=== PATIENT | female | born 2000 | race Caucasian/White ===

== ENCOUNTER 2025-03-18 23:02 | Emergency (ER) | payer SELFPAY ==
--- OUTSIDE RECORDS SUMMARY | 2025-03-18 23:06 | XMS REPORT | Continuity of Care Document ---
Author Name Unknown Address [address] [facility] [address] [place] [address] Organization [facility] [place] Address [address] [facility] [address] [place] [address] Care Team Providers Care Commercial Underwriter Name Role Phone UNKNOWN, REFFERING Primary Care Physician Hay Rodgers MD Attending Clinician [phone] HAY SHIRLEY Attending Clinician Unavailable Lab, [facility] Attending Clinician Unavailable Doctor Unassigned, [place] Attending Clinician U Mariana Baxter Attending Clinician Unavailable Francoise Hanson MD Attending Clinician [phone] FRANCOISE HANSON Attending Clinician Karan Vieira Attending Clinician Unavailable Ema Cuellar Attending Clinician [phone] EMA PERALTA Attending Clinician Unavailable Sanam Williamson Attending Clinician [phone] SANAM CASTAÑEDA Attending Clinician Unavailable [facility]ending Clinician Un available Viv ALEXANDER, Leta Attending Clinician [phone] Waleska Clay MD Attending Clinician [phone] WALESKA CLAY Attending Clinician Unavailable WALESKA CLAY Attending Clinician Unavailable Jake WOODALL, Ira Attending Clinician [phone], [facility] Room Attending Clinician Unavaildevika Ma MD, Sussy Brown Attending Clinician Maggy Aneesh Marshall MD Attending Clinician [phone] Fátima Arias CNM Attending Clinician [phone] KARRIE POE Attending Clinician Unavailable Physician, No Primary or Family Admitting Clinic rommel Unavailable Waleska Clay MD Admitting Clinician [phone] WALESKA CLAY Admitting Clinician Unavailable KARRIE POE Admitting Clinician Unavailable Payers Payer Name Policy Type Policy Number Effective Date Expirati on Date Source Problems Condition Name Condition Details Condition Category Status Onset Date Resolution Date Last Treatment Date Treating Clinician Comments Source Obesity affecting in third trimester Obesity affecting in third trimester Disease Active 2-03 00:00: 00 [facility] 39 weeks gestation of 39 weeks gestation of Disease Active 203 00:00: 00 [facility] Rubella non-immune status, antepartum Rubella non-immune status, antepartum Disease Active 04-09 00:00: 00 [facility] Maternal varicella, non-immune Maternal varicella, non-immune Disease Active 04-09 00:00: 00 [facility] Septate uterus Septate uterus Disease Active 04-07 00:00: 00 [facility] with inconclusi ve viability with inconclusi ve viability Disease Active 04-07 00:00: 00 Overview: Formattin g of this note might be different from the original. Gestation al sac only on 03/1219 with in left horn of septated uterus. F/u scheduled for 04/21/19 for viability . [facility] Septate uterus Septate uterus Disease Active 04-07 00:00: 00 [facility] Suicide attempt by drug ingestion Suicide attempt by drug ingestion Disease Active 03-22 00:00: 00 [facility] Suicide attempt by drug ingestion Suicide attempt by drug ingestion Disease Active 03-22 00:00: 00 [facility] Obesity (BMI 30-39.9) Obesity (BMI 30-39.9) Disease Active 03-20 00:00: 00 [facility] Class 3 severe obesity with body mass index (BMI) of 40.0 to 44.9 in adult Class 3 severe obesity with body mass index (BMI) of 40.0 to 44.9 in adult Disease Active 03-20 00:00: 00 [facility] Allergies, Adverse Reactions, Alerts Allergy Name Allergy Type Status Severity Reaction(s) Onset Date Inactive Date Treating Clinician Comments Source No Known Allergie s DA Active U 12-06 00:00: 00 [facility] No Known Allergie s DA Active U 12-06 00:00: 00 [facility] NO KNOWN ALLERGIE S Drug Class Active [facility] Social History Social Habit Start Date Stop Date Quantity Comments Source ASSERTION 2019-03-15 00:00:00 [facility] Gender identity [facility] Sexual orientation U [facility] Alcohol intake 2023-05-27 00:00:00 2023-05-27 00:00:00 Ex-drinker (finding) [facility] Tobacco use and exposure 2023-05-27 00:00:00 2023-05-27 00:00:00 Smokeless tobacco non-user [facility] History of Social function 2023-05-27 00:00:00 2023-05-27 00:00:00 [facility] Alcohol Comment 2019-04-07 00:00:00 2019-04-07 00:00:00 socially [facility] Sex Assigned At 2000 00:00:00 2000 00:00:00 [facility] Smoking Status Start Date Stop Date Source Never smoked tobacco [facility] Medications Ordered Medication Name Filled Medication Name Start Date Stop Date Current Medication? Ordering Clinician Indication Dosage Frequency Signature (SIG) Comments Components Source drospirenon e-ethinyl estradioL 3-0.02 mg per tablet 05-30 00:00: 00 Yes [id number] 1{tbl} Take 1 tablet by mouth in the morning. [facility] vit 33-iron-fol ic-dha (SELECT-OB + DHA) 29 mg iron-1 mg -250 mg combo pack 05-27 00:00: 00 Yes [id number] 1{packe t} Take 1 Packet by mouth in the morning. [facility] amoxicillin -clavulanat e (AUGMENTIN) 875-125 mg per tablet 05-22 00:00: 00 05-28 04:59 :00 No [id number] 1{tbl} Take 1 tablet by mouth 2 (two) times daily for 5 days. [facility] citalopram (CELEXA) 20 mg tablet 12-23 00:00: 00 05-27 00:00 :00 No [id number] 20mg Take 1 tablet by mouth daily. [facility] vit 33-iron-fol ic-dha (SELECT-OB + DHA) 29 mg iron-1 mg -250 mg combo pack 12-08 00:00: 00 Yes [id number] 1{packe t} Take 1 Packet by mouth daily. [facility] vit 33-iron-fol ic-dha (SELECT-OB + DHA) 29 mg iron-1 mg -250 mg combo pack 12-08 00:00: 00 05-27 00:00 :00 No [id number] 1{packe t} Take 1 Packet by mouth daily. [facility] foLIC acid (FOLATE) tablet 1 mg 12-02 15:00: 00 Yes 1mg 1 mg, Oral, DAILY, First dose on Ana 12/02/19 at 0900, Until Discontinu ed, Routine [facility] ascorbic acid (vitamin C) (VITAMIN C) tablet 500 mg 12-02 15:00: 00 Yes 500mg 500 mg, Oral, DAILY, First dose on Fri12/02/19 at 0900, Until Discontinu ed, Routine [facility] ferrous sulfate tablet 325 mg 12-02 14:00: 00 Yes 325mg 325 mg, Oral, TID MEALS, First dose on Fri12/02/19 at 0800, Until Discontinu ed, Routine [facility] varicella virus vaccine live (VARIVAX (PF)) injection 0.5 mL 12-02 09:12: 48 Yes .5mL 0.5 mL, Subcutaneo us, ONCE-PRIOR TO DISCHARGE, 1 dose, Starting Fri12/02/19 at 0312, Until Discontinu ed, Routine, Give vaccine prior to discharge [facility] lactated ringers IV infusion 500 mL 12-02 00:57: 00 12-02 01:16 :00 No 500mL at 999 mL/hr, 500 mL, Intravenou s, ONCE, 1 dose, Fri12/01/19 at 1900, Routine [facility] vitamin w/FA tablet 12-02 00:00: 00 Yes [id number] 1{tbl} Take 1 tablet by mouth daily. [facility] ascorbic acid, vitamin C, 500 mg tablet 12-02 00:00: 00 05-27 00:00 :00 No [id number] 500mg Take 1 tablet by mouth daily. [facility] ferrous sulfate 325 mg (65 mg iron) tablet 12-02 00:00: 00 05-27 00:00 :00 No [id number] 325mg Take 1 tablet by mouth 3 (three) times daily with meals. [facility] foLIC acid 1 mg tablet 12-02 00:00: 00 05-27 00:00 :00 No [id number] 1mg Take 1 tablet by mouth daily. [facility] docusate calcium 240 mg capsule 12-02 00:00: 00 05-27 00:00 :00 No [id number] 240mg Take 1 capsule by mouth once daily as needed for Constipati on. [facility] ibuprofen 600 mg tablet 12-02 00:00: 00 05-27 00:00 :00 No [id number] 600mg Take 1 tablet by mouth every 6 (six) hours as needed (Pain). Take with food or milk. [facility] HYDROcodone -acetaminop hen 5-325 mg tablet 12-02 00:00: 00 05-27 00:00 :00 No [id number] 1{tbl} Take 1 tablet by mouth every 6 (six) hours as needed for Pain (scale 7-10) (alternate with ibuprofen) . [facility] lactated ringers IV infusion 1,000 mL 12-01 23:00: 00 12-02 06:22 :00 No 1000mL at 125 mL/hr, 1,000 mL, IV Infusion, ONCE, 1 dose, Fri12/01/19 at 1700, Routine [facility] rho(D) immune globulin (RHOGAM) syringe 300 mcg 12-01 22:52: 41 Yes 300ug 300 mcg, Intramuscu lar, ONCE, For 1 dose, Conditiona l, Routine [facility] ondansetron (ZOFRAN (PF)) injection 4 mg 12-01 22:52: 36 Yes 4mg 4 mg, Slow IV Push, Q8HPRN, Starting Fri12/01/19 at 1652, Until Discontinu ed, Routine, Nausea and Vomiting (N/V) [facility] simethicone (GAS RELIEF (SIMETHICON E)) chewable tablet 160 mg 12-01 22:52: 36 Yes 160mg 160 mg, Oral, PC+HSPRN, Starting Fri12/01/19 at 1652, Until Discontinu ed, Routine, Gas [facility] magnesium hydroxide (MILK OF MAGNESIA) 400 mg/5 mL suspension 30 mL 12-01 22:52: 36 Yes 30mL 30 mL, Oral, QDAILYPRN, Starting Fri12/01/19 at 1652, Until Discontinu ed, Routine, Constipati on [facility] HYDROcodone -acetaminop hen (NORCO 5) 5-325 mg tablet 2 tablet 12-01 22:52: 35 Yes 2{tbl} 2 tablet, Oral, Q6HPRN, Starting Fri12/01/19 at 165, Until Discontinu ed, Routine, Pain (scale 7-10), If uncontroll ed by Ibuprofen [facility] HYDROcodone -acetaminop hen (NORCO 5) 5-325 mg tablet 1 tablet 12-01 22:52: 35 Yes 1{tbl} 1 tablet, Oral, Q6HPRN, Starting Fri12/01/19 at 1651, Until Discontinu ed, Routine, Pain (scale 4-6), If uncontroll ed by Ibuprofen [facility] ibuprofen (IBU) tablet 600 mg 12-01 22:52: 35 Yes 600mg 600 mg, Oral, Q6HPRN, Starting Fri12/01/19 at 1651, Until Discontinu ed, Routine, Pain (scale 1-3) [facility] human papillomav vac,9-christ(P F) (GARDASIL-9 ) syringe 0.5 mL 12-01 22:52: 35 Yes .5mL 0.5 mL, Intramuscu lar, ONCE-PRIOR TO DISCHARGE, 1 dose, Starting Fri12/01/19 at 1651, Until Discontinu ed, Routine, Give vaccine prior to discharge [facility] diphenhydrA MINE (BENADRYL) tablet 25 mg 12-01 22:52: 35 Yes 25mg 25 mg, Oral, Q6HPRN, Starting Fri12/01/19 at 1651, Until Discontinu ed, Routine, Sleep, Itching [facility] bisacodyL (DULCOLAX) suppository 10 mg 12-01 22:52: 35 Yes 10mg 10 mg, Rectal, QDAILYPRN, Starting Fri12/01/19 at 1651, Until Discontinu ed, Routine, Constipati on [facility] docusate calcium (SURFAK) capsule 240 mg 12-01 22:52: 35 Yes 240mg 240 mg, Oral, QDAILYPRN, Starting Fri12/01/19 at 165, Until Discontinu ed, Routine, Constipati on [facility] ketorolac (TORADOL) injection 30 mg 12-01 20:18: 07 Yes 30mg 30 mg, Slow IV Push, Q6HPRN, 4 doses, Starting Fri12/01/19 at 1418, Until Discontinu ed, Routine, Pain (scale 4-6), [facility] : LD PACU [facility] LR 1000 mL + oxytocin 20 units IV Solution 12-01 18:30: 00 12-01 22:52 :42 No at 125 mL/hr, IV Infusion, CONTINUOUS , Starting Fri12/01/19 at 1230, Until Fri12/01/19 at 1652, LATHA [facility] azithromyci n (ZITHROMAX) 500 mg in NaCl 0.9% (NS) 250 mL VIAL-MATE IV piggyback 12-01 17:52: 07 12-01 19:02 :00 No 500mg 500 mg, IV Piggyback, O.R. HOLDING ONCE, 1 dose, Starting Fri12/01/19 at 1152, Until Discontinu ed, 250 mL
Reas on for Anti-Infec tive: Surgical Prophylaxi s
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
Duration of therapy: within 24 hours of surgery [facility] sodium citrate-cit bucky acid (BICITRA) 500-334 mg/5 mL solution 30 mL 12-01 17:51: 52 12-01 18:02 :00 No 30mL 30 mL, Oral, PRE-PROCED URE ONCE, 1 dose, Starting Fri12/01/19 at 1151, Until Discontinu ed, Routine, Surgery [facility] LR 1000 mL + oxytocin 20 units IV Solution 12-01 02:07: 42 12-01 22:52 :42 No 2mU/min 2 zena-unit s/min (6 mL/hr), at 6 mL/hr, IV Infusion, TITRATE, Starting 11/30/19 at 2007, Until Fri12/01/19 at 1652, LATHA, Oxytocin Induction / Augmentati on of Labor. [facility] acetaminoph en (TYLENOL) tablet 650 mg 12-01 01:30: 00 12-01 01:32 :00 No 650mg 650 mg, Oral, ONCE, 1 dose, 11/30/19 at 1930, Routine [facility] lactated ringers IV infusion 500 mL 11-30 12:45: 00 11-30 12:08 :00 No 500mL at 999 mL/hr, 500 mL, IV Infusion, ONCE, 1 dose, 11/30/19 at 0645, Routine [facility] proMETHazin e (PHENERGAN) 25 mg in NaCl 0.9% (NS) 50 mL IV piggyback 11-30 08:36: 34 12-01 22:52 :42 No 25mg 25 mg, IV Piggyback, Q4HPRN, Starting 11/30/19 at 0236, Until 12/01/19 at 1652, Routine, Nausea and Vomiting (N/V) [facility] nalbuphine (NUBAIN) injection 10 mg 11-30 08:36: 00 11-30 08:55 :00 No 10mg 10 mg, Intravenou s, ONCE, 1 dose, 11/30/19 at 0245, Routine [facility] LR 1000 mL + oxytocin 20 units IV Solution 11-30 04:15: 00 12-01 02:08 :11 No 2mU/min 2 zena-unit s/min (6 mL/hr), at 6 mL/hr, IV Infusion, CONTINUOUS , Starting 11/29/19 at 2215, Until 11/30/19 at 2008, LATHA [facility] D5W-LR IV infusion 1,000 mL 11-30 03:15: 00 12-01 22:52 :42 No 1000mL at 125 mL/hr, IV Infusion, CONTINUOUS , Starting 11/29/19 at 2115, Until 12/01/19 at 1652, Routine [facility] sodium citrate-cit bucky acid (BICITRA) 500-334 mg/5 mL solution 30 mL 11-30 03:08: 58 11-30 12:09 :00 No 30mL 30 mL, Oral, PRE-PROCED URE ONCE, 1 dose, Starting Fri11/29/19 at 2108, Until Discontinu ed, Routine, Surgery/Pr ocedure [facility] Iron Fum & P-FA-Vit B & C No.9 (INTEGRA PLUS) 125 mg iron- 1 mg Cap 2018-10 2-18 00:00: 00 12-02 00:00 :00 No [id number] 1{capsu le} Take 1 capsule by mouth daily for 90 days. [facility] doxylamine- pyridoxine, vit B6, (DICLEGIS) 10-10 mg per tablet 7-10 00:00: 00 12-02 00:00 :00 No [id number] 2{tbl} Take 2 tablets by mouth at bedtime. 1 tab morning PRN, 1 tab late afternoon PRN, 2 tabs every bedtime [facility] proMETHazin e 25 mg tablet 6-12 00:00: 00 12-02 00:00 :00 No [id number] 25mg Take 1 tablet by mouth every 6 (six) hours as needed for Nausea and Vomiting (N/V). [facility] Vital Signs Vital Name Observation Time Observation Value Comments S ource Systolic blood pressure 2023-05-27 20:39:00 123 mm[Hg] [facility] Diastolic blood pressure 2023-05-27 20:39:00 84 mm[Hg] [facility] Heart rate 2023-05-27 20:39:00 87 /min [facility] Body temperature 2023-05-27 20:39:00 37 Lucinda [facility] Respiratory rate 2023-05-27 20:39:00 21 /min [facility] Body height 2023-05-27 20:39:00 147.3 cm [facility] Body weight 2023-05-27 20:39:00 93.94 kg [facility] BMI 2023-05-27 20:39:00 43.28 kg/m2 [facility] Oxygen saturation in Arterial blood by Pulse oximetry 2023-05-27 20:39:00 100 /min [facility] Systolic blood pressure 2021-05-22 15:49:00 108 mm[Hg] [facility] Diastolic blood pressure 2021-05-22 15:49:00 73 mm[Hg] [facility] Heart rate 2021-05-22 15:49:00 99 /min [facility] Body temperature 2021-05-22 15:49:00 36.67 Lucinda [facility] Respiratory rate 2021-05-22 15:49:00 18 /min [facility] Body height 2021-05-22 15:49:00 147.3 cm [facility] Body weight 2021-05-22 15:49:00 88.225 kg [facility] BMI 2021-05-22 15:49:00 40.65 kg/m2 [facility] Oxygen saturation in Arterial blood by Pulse oximetry 2021-05-22 15:49:00 98 /min [facility] Systolic blood pressure 2019-12-23 17:13:00 110 mm[Hg] [facility] Diastolic blood pressure 2019-12-23 17:13:00 76 mm[Hg] [facility] Body temperature 2019-12-23 17:13:00 36.72 Lucinda [facility] Respiratory rate 2019-12-23 17:13:00 18 /min [facility] Body height 2019-12-23 17:13:00 147.3 cm [facility] Body weight 2019-12-23 17:13:00 80.377 kg [facility] BMI 2019-12-23 17:13:00 37.03 kg/m2 [facility] Systolic blood pressure 2019-12-23 17:13:00 110 mm[Hg] [facility] Diastolic blood pressure 2019-12-23 17:13:00 76 mm[Hg] [facility] Body temperature 2019-12-23 17:13:00 36.72 Lucinda [facility] Respiratory rate 2019-12-23 17:13:00 18 /min [facility] Body height 2019-12-23 17:13:00 147.3 cm [facility] Body weight 2019-12-23 17:13:00 80.377 kg [facility] BMI 2019-12-23 17:13:00 37.03 kg/m2 [facility] Systolic blood pressure 2019-12-09 19:39:00 124 mm[Hg] [facility] Diastolic blood pressure 2019-12-09 19:39:00 78 mm[Hg] [facility] Heart rate 2019-12-09 19:39:00 79 /min [facility] Body temperature 2019-12-09 19:39:00 36.78 Lucinda [facility] Respiratory rate 2019-12-09 19:39:00 18 /min [facility] Body height 2019-12-09 19:39:00 147.3 cm [facility] Body weight 2019-12-09 19:39:00 81.738 kg [facility] BMI 2019-12-09 19:39:00 37.66 kg/m2 [facility] Systolic blood pressure 2019-12-09 19:39:00 124 mm[Hg] [facility] Diastolic blood pressure 2019-12-09 19:39:00 78 mm[Hg] [facility] Heart rate 2019-12-09 19:39:00 79 /min [facility] Body temperature 2019-12-09 19:39:00 36.78 Lucinda [facility] Respiratory rate 2019-12-09 19:39:00 18 /min [facility] Body height 2019-12-09 19:39:00 147.3 cm [facility] Body weight 2019-12-09 19:39:00 81.738 kg [facility] BMI 2019-12-09 19:39:00 37.66 kg/m2 [facility] Systolic blood pressure 2019-12-03 14:00:00 123 mm[Hg] [facility] Diastolic blood pressure 2019-12-03 14:00:00 86 mm[Hg] [facility] Heart rate 2019-12-03 14:00:00 96 /min [facility] Body temperature 2019-12-03 14:00:00 36.83 Lucinda [facility] Respiratory rate 2019-12-03 14:00:00 18 /min [facility] Oxygen saturation in Arterial blood by Pulse oximetry 2019-12-03 14:00:00 98 /min [facility] Body height 2019-11-30 01:20:00 147.3 cm [facility] Body weight 2019-11-30 01:20:00 90.9 kg [facility] BMI 2019-11-30 01:20:00 41.89 kg/m2 [facility] Systolic blood pressure 2019-12-03 14:00:00 123 mm[Hg] [facility] Diastolic blood pressure 2019-12-03 14:00:00 86 mm[Hg] [facility] Heart rate 2019-12-03 14:00:00 96 /min [facility] Body temperature 2019-12-03 14:00:00 36.83 Lucinda [facility] Respiratory rate 2019-12-03 14:00:00 18 /min [facility] Oxygen saturation in Arterial blood by Pulse oximetry 2019-12-03 14:00:00 98 /min [facility] Body height 2019-11-30 01:20:00 147.3 cm [facility] Body weight 2019-11-30 01:20:00 90.9 kg [facility] BMI 2019-11-30 01:20:00 41.89 kg/m2 [facility] Systolic blood pressure 2019-11-25 17:11:00 118 mm[Hg] [facility] Diastolic blood pressure 2019-11-25 17:11:00 70 mm[Hg] [facility] Heart rate 2019-11-25 17:11:00 89 /min [facility] Body temperature 2019-11-25 17:11:00 36.78 Lucinda [facility] Respiratory rate 2019-11-25 17:11:00 18 /min [facility] Body height 2019-11-25 17:11:00 147.3 cm [facility] Body weight 2019-11-25 17:11:00 90.719 kg [facility] BMI 2019-11-25 17:11:00 41.80 kg/m2 [facility] Systolic blood pressure 2019-11-25 17:11:00 118 mm[Hg] [facility] Diastolic blood pressure 2019-11-25 17:11:00 70 mm[Hg] [facility] Heart rate 2019-11-25 17:11:00 89 /min [facility] Body temperature 2019-11-25 17:11:00 36.78 Lucinda [facility] Respiratory rate 2019-11-25 17:11:00 18 /min [facility] Body height 2019-11-25 17:11:00 147.3 cm [facility] Body weight 2019-11-25 17:11:00 90.719 kg [facility] BMI 2019-11-25 17:11:00 41.80 kg/m2 [facility] Systolic blood pressure 2019-11-18 17:08:00 108 mm[Hg] [facility] Diastolic blood pressure 2019-11-18 17:08:00 70 mm[Hg] [facility] Heart rate 2019-11-18 17:08:00 89 /min [facility] Body temperature 2019-11-18 17:08:00 36.89 Lucinda [facility] Respiratory rate 2019-11-18 17:08:00 19 /min [facility] Body height 2019-11-18 17:08:00 147.3 cm [facility] Body weight 2019-11-18 17:08:00 89.948 kg [facility] BMI 2019-11-18 17:08:00 41.44 kg/m2 [facility] Systolic blood pressure 2019-11-18 17:08:00 108 mm[Hg] [facility] Diastolic blood pressure 2019-11-18 17:08:00 70 mm[Hg] [facility] Heart rate 2019-11-18 17:08:00 89 /min [facility] Body temperature 2019-11-18 17:08:00 36.89 Lucinda [facility] Respiratory rate 2019-11-18 17:08:00 19 /min [facility] Body height 2019-11-18 17:08:00 147.3 cm [facility] Body weight 2019-11-18 17:08:00 89.948 kg [facility] BMI 2019-11-18 17:08:00 41.44 kg/m2 [facility] Systolic blood pressure 2019-11-11 16:20:00 122 mm[Hg] [facility] Diastolic blood pressure 2019-11-11 16:20:00 60 mm[Hg] [facility] Heart rate 2019-11-11 16:20:00 96 /min [facility] Body temperature 2019-11-11 16:20:00 36.44 Lucinda [facility] Respiratory rate 2019-11-11 16:20:00 18 /min [facility] Body height 2019-11-11 16:20:00 147.3 cm [facility] Body weight 2019-11-11 16:20:00 89.449 kg [facility] BMI 2019-11-11 16:20:00 41.21 kg/m2 [facility] Systolic blood pressure 2019-11-11 16:20:00 122 mm[Hg] [facility] Diastolic blood pressure 2019-11-11 16:20:00 60 mm[Hg] [facility] Heart rate 2019-11-11 16:20:00 96 /min [facility] Body temperature 2019-11-11 16:20:00 36.44 [facility] Respiratory rate 2019-11-11 16:20:00 18 /min [facility] Body height 2019-11-11 16:20:00 147.3 cm [facility] Body weight 2019-11-11 16:20:00 89.449 kg [facility] BMI 2019-11-11 16:20:00 41.21 kg/m2 [facility] Systolic blood pressure 2019-07-05 16:10:00 106 mm[Hg] [facility] Diastolic blood pressure 2019-07-05 16:10:00 64 mm[Hg] [facility] Heart rate 2019-07-05 16:10:00 108 /min [facility] Body temperature 2019-07-05 16:10:00 37.28 [facility] Respiratory rate 2019-07-05 16:10:00 18 /min [facility] Body height 2019-07-05 16:10:00 147.3 cm [facility] Body weight 2019-07-05 16:10:00 80.967 kg [facility] BMI 2019-07-05 16:10:00 37.31 kg/m2 [facility] Systolic blood pressure 2019-07-05 16:10:00 106 mm[Hg] [facility] Diastolic blood pressure 2019-07-05 16:10:00 64 mm[Hg] [facility] Heart rate 2019-07-05 16:10:00 108 /min [facility] Body temperature 2019-07-05 16:10:00 37.28 [place] [facility] Respiratory rate 2019-07-05 16:10:00 18 /min [facility] Body height 2019-07-05 16:10:00 147.3 cm [facility] Body weight 2019-07-05 16:10:00 80.967 kg [facility] BMI 2019-07-05 16:10:00 37.31 kg/m2 [facility] Systolic blood pressure 2019-06-02 18:36:00 124 mm[Hg] [facility] Diastolic blood pressure 2019-06-02 18:36:00 70 mm[Hg] [facility] Heart rate 2019-06-02 18:36:00 78 /min [facility] Body temperature 2019-06-02 18:36:00 37.06 [place] [facility] Respiratory rate 2019-06-02 18:36:00 18 /min [facility] Body height 2019-06-02 18:36:00 147.3 cm [facility] Body weight 2019-06-02 18:36:00 80.315 kg [facility] BMI 2019-06-02 18:36:00 37.01 kg/m2 [facility] Systolic blood pressure 2019-06-02 18:36:00 124 mm[Hg] [facility] Diastolic blood pressure 2019-06-02 18:36:00 70 mm[Hg] [facility] Heart rate 2019-06-02 18:36:00 78 /min [facility] Body temperature 2019-06-02 18:36:00 37.06 [facility] Respiratory rate 2019-06-02 18:36:00 18 /min [facility] Body height 2019-06-02 18:36:00 147.3 cm [facility] Body weight 2019-06-02 18:36:00 80.315 kg [facility] BMI 2019-06-02 18:36:00 37.01 kg/m2 [facility] Procedures Procedure Date / Time Performed Performing Clinician Source POCT TEST 2023-05-27 21:22:00 Hay Shirley [facility] ASSIGNMENT OF BENEFITS 2023-05-27 20:18:36 Docto r Unassigned, [place] [facility] ASSIGNMENT OF BENEFITS 2021-05-22 15:38:17 Docto r Unassigned, [place] [facility] EXTERNAL PROVIDER RECORDS 2020-01-21 05:01:00 Doctor Unassigned, [place] [facility] PROFILE / HEMOGRAM 2019-12-02 06:21:00 Valdez Mccoy [facility] VENOUS CORD GAS 2019-12-01 19:27:00 Alex Nuñez [facility] SECTION 2019-12-01 18:01:00 Fabrice Beth [facility] CBC WITH DIFFERENTIAL 2019-11-30 03:33:00 Anderson Nuñez [facility] HEPATITIS B SURFACE ANTIGEN 2019-11-30 03:33:00 Anderson Nuñez [facility] HIV 1/2 AG-AB WITH REFLEX 2019-11-30 03:33:00 Anderson Nuñez [facility] GALV ONLY - SYPHILIS IGG/IGM 2019-11-30 03:33:00 Anderson Nuñez [facility] HB ABO GROUPING 2019-11-30 03:32:00 Alex Nuñez [facility] RHO (D) IMMUNE GLOBULIN 2019-11-30 03:32:00 Judi Velázquez [facility] CBC WITH DIFFERENTIAL 2019-11-11 16:59:00 Eugenie Joseph [facility] POCT URINALYSIS 2019-11-11 16:21:[address] [facility] QUAD SCRN 2019-07-05 16:50:00 Ira Joseph [facility] POCT URINALYSIS 2019-07-05 16:11:[address] [facility] Encounters Start Date/Time End Date/Time Encounter Type Admission Type Attending Clinicians Care Facility Care Department Encounter ID Source 2020-12-06 04:43:11 Inpatient [facility] [id number] [facility] 2023-05-27 15:30:00 2023-05-27 16:00:00 Office Visit Pat [facility] 1.0.114 350.1.13.10 4.2.7.2.686 [id number] [facility] 2023-05-27 15:30:00 2023-05-27 15:30:00 Outpatient R PAT [facility] [id number] [facility] 2023-05-27 15:15:00 2023-05-27 15:30:00 Boat [facility] 1.20.114 350.1.13.10 4.2.7.2.686 [id number] [facility] 2023-05-27 00:00:00 2023-05-27 00:00:00 Orders Only Doctor Unassigned, [place] [facility] 1.2840.114 350.1.13.10 4.2.7.2.686 [id number] [facility] 2022-08-02 20:35:00 2022-08-02 22:00:00 Emergency EM Mariana Rhoades [facility] [id number] [facility] 2021-05-22 10:39:52 2021-05-22 10:59:52 Office Visit Arpit Francoise celeste [facility] 1.2840.114 350.1.13.10 4.2.7.2.686 [id number] [facility] 2021-05-22 10:40:00 2021-05-22 10:40:00 Outpatient R ARPIT [facility] [id number] [facility] 2021-05-22 00:00:00 2021-05-22 00:00:00 Orders Only Doctor Unassigned, [place] [facility] 1.840.114 350.1.13.10 4.2.7.2.686 [id number] [facility] 2020-12-06 15:13:00 2020-12-06 15:13:00 Outpatient Karan Prieto [facility]O [id number] [facility] 2020-12-06 04:46:22 2020-12-06 04:46:22 Emergency EM Karan Prieto [facility] HCABM [id number] [facility] 2020-01-21 00:00:00 2020-01-21 00:00:00 Orders Only Doctor Unassigned, [place] [facility] 1.2840.114 350.1.13.10 4.2.7.2.686 [id number] [facility] 2020-01-21 00:00:00 2020-01-21 00:00:00 Orders Only Doctor Unassigned, [place] [facility] 1.2840.114 350.1.13.10 4.2.7.2.686 [id number] 2020-01-19 00:00:00 2020-01-19 00:00:00 [facility] 1.2.840.114 350.1.13.10 4.2.7.2.686 [id number] [facility] 2020-01-19 00:00:00 2020-01-19 00:00:00 Case Management June [facility] 1.2.840.114 350.1.13.10 4.2.7.2.686 [id number] 2020-01-18 14:15:00 2020-01-18 14:15:00 Outpatient R [facility]E [facility] [id number] [facility] 2019-12-23 11:06:32 2019-12-23 11:28:10 Routine Visit [facility] 1.2.840.114 350.1.13.10 4.2.7.2.686 [id number] [facility] 2019-12-23 11:06:32 2019-12-23 11:28:10 Routine Visit [facility] 1.2.840.114 350.1.13.10 4.2.7.2.686 [id number] 2019-12-23 11:00:00 2019-12-23 11:00:00 Outpatient R GARRY [facility]ER[facility]T [facility] [id number] [facility] 2019-12-09 13:29:24 2019-12-09 14:06:20 Nurse Visit Visit/Fp, [facility] Nurse [facility] 1.2.840.114 350.1.13.10 4.2.7.2.686 [id number] [facility] 2019-12-09 13:29:24 2019-12-09 14:06:20 Nurse Visit Visit/Fp, [facility] 1.2.840.114 350.1.13.10 4.2.7.2.686 [id number] 2019-12-08 00:00:00 2019-12-08 00:00:00 Telephone [facility] 1.2.840.114 350.1.13.10 4.2.7.2.686 [id number] [facility] 2019-12-08 00:00:00 2019-12-08 00:00:00 Telephone [facility] 1.2.840.114 350.1.13.10 4.2.7.2.686 [id number] 2019-11-29 18:56:00 2019-12-03 19:20:00 Hospital Encounter [facility] 1.2.840.114 350.1.13.10 4.2.7.2.686 [id number] [facility] 2019-11-29 18:56:00 2019-12-03 19:20:00 Inpatient P WALESKA CLAY SHANNON [facility] SIMONE [id number] [facility] 2019-11-29 18:56:00 2019-12-03 19:20:00 Hospital Encounter [facility]toWaleska [facility] 1.2.840.114 350.1.13.10 4.2.7.2.686 [id number] 2019-11-25 10:50:20 2019-11-25 11:45:19 Routine Visit [facility] 1.2.840.114 350.1.13.10 4.2.7.2.686 [id number] [facility] 2019-11-25 10:50:20 2019-11-25 11:45:19 Routine Visit [facility] 1.2.840.114 350.1.13.10 4.2.7.2.686 [id number] 2019-11-18 10:32:34 2019-11-18 11:36:31 [facility] 1.2.840.114 350.1.13.10 4.2.7.2.686 [id number] [facility] 2019-11-18 10:32:34 2019-11-18 11:36:31 Routine Visit [facility] 1.2.840.114 350.1.13.10 4.2.7.2.686 [id number] 2019-11-11 10:02:53 2019-11-11 11:05:19 Routine Visit [facility] 1.2.840.114 350.1.13.10 4.2.7.2.686 [id number] [facility] 2019-11-11 10:02:53 2019-11-11 11:05:19 Routine Visit [facility] 1.2.840.114 350.1.13.10 4.2.7.2.686 [id number] 2019-07-12 10:34:44 2019-07-12 12:42:45 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, [facility] Room Anil, Sussy Stephanie Patino, Melendrez Ricci [facility] 1.2.840.114 350.1.13.10 4.2.7.2.686 [id number] [facility] 2019-07-12 10:34:44 2019-07-12 12:42:45 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, [facility] Room [facility] 1.2.840.114 350.1.13.10 4.2.7.2.686 [id number] 2019-07-07 00:00:00 2019-07-07 00:00:00 Telephone [facility] 1.2.840.114 350.1.13.10 4.2.7.2.686 [id number] [facility] 2019-07-07 00:00:00 2019-07-07 00:00:00 Telephone Jake Ira [facility] 1.2.840.114 350.1.13.10 4.2.7.2.686 [id number] 2019-07-05 11:01:30 2019-07-05 11:51:46 Routine Visit [facility] 1.2.840.114 350.1.13.10 4.2.7.2.686 [id number] [facility] 2019-07-05 11:01:30 2019-07-05 11:51:46 Routine Visit [facility] 1.2.840.114 350.1.13.10 4.2.7.2.686 [id number] 2019-06-02 13:26:16 2019-06-02 13:56:00 Routine Visit [facility] 1.2.840.114 350.1.13.10 4.2.7.2.686 [id number] [facility] 2019-06-02 13:26:16 2019-06-02 13:56:00 Routine Visit [facility] 1.2.840.114 350.1.13.10 4.2.7.2.686 [id number] Results Test Description Test Time Test Comments Results Result Co mments Source [facility] [id number] 21:22:00* Test Item Value Reference Range Interpretation Comme nts POCT PREG (test code = 1605) Negative On board controls acceptable with C Line (test code = 3574) Yes POCT PREG LOT # (test code = 3575) [id number] POCT PREG TEST DATE ( test code = 3576) Lab Interpretation (test cod e = 60457-0) Normal [facility] [id number] 06:01:00 * Test Item Value Reference Range Interpretation Comme nts B-TYPE NATRIURETIC PEPTIDE (test code = BNP) 3.84 pgram/mL 0-100 N URINALYSIS [id number] 05:56:00* Test Item Value Reference Range Interpretation Comme nts UA COLOR (test code = COLU) YELLOW YELLOW UA APPEARANCE (test code = APPU) HAZY CLEAR A UA GLUCOSE DIPSTICK (test code = DGLUU) NEGATIVE mg/dL NEGATIVE UA BILIRUBIN DIPSTICK (test code = BILU) NEGATIVE mg/dL NEGATIVE UA KETONE DIPSTICK (test code = KETU) NEGATIVE mg/dL NEGATIVE UA SPECIFIC GRAVITY (test code = SGU) 1.020 1.001-1.035 UA BLOOD DIPSTICK (test code = CAMILA) Negative mg/dL NEGATIVE UA PH DIPSTICK (test code = SHAWANDA) 6.0 5.0-8.0 UA PROTEIN DIPSTICK (test code = PROU) 20 (Trace) mg/dL NEGATIVE A UA UROBILINIOGEN DIPSTICK (test code = URO) Normal mg/dL NEGATIVE UA NITRITE DIPSTICK (test code = OZZIE) NEGATIVE NEGATIVE UA LEUKOCYTE ESTERASE W REFLEX (test code = LEUUR) 75 Julia/uL (1+) Julia/uL NEGATIVE A UA WBC (test code = WBCU) 6-10 per HPF 0-5 A UA RBC (test code = RBCU) 3-5 #/HPF 0-5 UA EPITHELIAL CELLS (test code = EPIU) MANY per HPF FEW UA BACTERIA (test code = BACU) FEW #/HPF NONE A UA MUCUS (test code = MUCU) FEW #/LPF FEW Urine Source? Clean CatchLACTIC [id number] 05:42:00* Test Item Value Reference Range Interpretation Comme nts LACTIC ACID (test code = LACT) 1.0 mmol/L 0.4-1.9 N BASIC METABOLIC [id number] 05:30:00* Test Item Value Reference Range Interpretation Comme nts SODIUM (test code = NA) 140 mmol/L 136-145 N POTASSIUM (test code = K) 3.5 mmol/L 3.5-5.1 N CHLORIDE (test code = CL) 107.0 mmol/L 98-107 N CARBON DIOXIDE (test code = CO2) 24.0 mmol/L 21-32 N ANION GAP (test code = GAP) 12.5 10-20 N GLUCOSE (test code = GLU) 95 mg/dL 74-106 N BLOOD UREA NITROGEN (test code = BUN) 10 mg/dL 7-18 N GLOMERULAR FILTRATION RATE (test code = GFR) > 60 mL/min See_Comment Estimated GFR by using Modified MDRD formula.Chronic kidney disease is defined as either kidney damageor GFR <60 mL/min/1.73 m2 for >3 months. [Automated message] The system which generated this result transmitted reference range: >=60. The reference range was not used to interpret this result as normal/abnormal. CREATININE (test code = CREAT) 0.70 mg/dL 0.55-1.02 N Note change in reference range due to change in reagent. BUN/CREATININE RATIO (test code = BUN/CREA) 13.9 10-20 N CALCIUM (test code = CA) 8.9 mg/dL 8.5-10.1 N HEPATIC FUNCTION [id number] 05:30:00* Test Item Value Reference Range Interpretation Comme nts TOTAL PROTEIN (test code = PROT) 7.7 gram/dL 6.4-8.2 N ALBUMIN (test code = ALB) 3.7 g/dL 3.4-5.0 N GLOBULIN (test code = GLOB) 4.0 gram/dL 2.7-4.2 N ALBUMIN/GLOBULIN RATIO (test code = A/G) 0.9 0.75-1.50 N BILIRUBIN TOTAL (test code = BILT) 0.40 mg/dL 0.0-1.0 N BILIRUBIN DIRECT (test code = BILD) 0.09 mg/dL 0.0-0.20 N SGOT/AST (test code = AST) 39 IUnit/L 15-37 H SGPT/ALT (test code = ALT) 63 IUnit/L 12-78 N ALKALINE PHOSPHATASE TOTAL (test code = ALKP) 84 IUnit/L 45-117 N Note change in reference range due to change in reagent. LACTIC DEHYDROGENASE(LDH)2020-12-06 05:30:00* Test Item Value Reference Range Interpretation Comme nts LACTIC DEHYDROGENASE(LDH) (t est code = LDH) 199 IUnit/L 84-246 N [id number] 05:30:00* Test Item Value Reference Range Interpretation Comme nts LIPASE (test code = LIP) 91 U/L 73.0-393.0 N HCG SERUM [id number] 05:30:00* Test Item Value Reference Range Interpretation Comme nts HCG SERUM QUAL (test code = HCGQL) NEGATIVE NEGATIVE This HCGQL test is NOT applicable for MALE patients.Check with nurse about probable order error.If Tumor Marker Test needed, nurse should order test "HCGTU"(Test #550.68488) [id number] 05:30:00* Test Item Value Reference Range Interpretation Comme [facility] TROPONIN-I (test code = TROPI) <0.015 ng/mL 0-0.045 N BASIC METABOLIC [id number] 05:29:00* Test Item Value Reference Range Interpretation Comme nts SODIUM (test code = NA) 140 mmol/L 136-145 N POTASSIUM (test code = K) 3.5 mmol/L 3.5-5.1 N CHLORIDE (test code = CL) 107.0 mmol/L 98-107 N CARBON DIOXIDE (test code = CO2) mmol/L 21-32 ANION GAP (test code = GAP) 10-20 GLUCOSE (test code = GLU) mg/dL 74-106 BLOOD UREA NITROGEN (test code = BUN) mg/dL 7-18 GLOMERULAR FILTRATION RATE (test code = GFR) mL/min See_Comment [Automated mes danielle] The system which generated this result transmitted reference range: >=60. The reference range was not used to interpret this result as normal/abnormal. CREATININE (test code = CREAT) mg/dL 0.55-1.02 BUN/CREATININE RATIO (test code = BUN/CREA) 10-20 CALCIUM (test code = CA) mg/dL 8.5-10.1 HEPATIC FUNCTION [id number] 05:29:00* Test Item Value Reference Range Interpretation Comme nts TOTAL PROTEIN (test code = PROT) gram/dL 6.4-8.2 ALBUMIN (test code = ALB) g/dL 3.4-5.0 GLOBULIN (test code = GLOB) gram/dL 2.7-4.2 ALBUMIN/GLOBULIN RATIO (test code = A/G) 0.75-1.50 BILIRUBIN TOTAL (test code = BILT) mg/dL 0.0-1.0 BILIRUBIN DIRECT (test code = BILD) mg/dL 0.0-0.20 SGOT/AST (test code = AST) IUnit/L 15-37 SGPT/ALT (test code = ALT) IUnit/L 12-78 ALKALINE PHOSPHATASE TOTAL ( test code = ALKP) IUnit/L 45-117 LACTIC DEHYDROGENASE(LDH)2020-12-06 05:29:00* Test Item Value Reference Range Interpretation Comme [facility] LACTIC DEHYDROGENASE(LDH) (t est code = LDH) IUnit/L 84-246 [id number] 05:29:00* Test Item Value Reference Range Interpretation Comme [facility] LIPASE (test code = LIP) U/L 73.0-393.0 HCG SERUM [id number] 05:29:00* Test Item Value Reference Range Interpretation Comme [facility] HCG SERUM QUAL (test code = HCGQL) NEGATIVE NEGATIVE This HCGQL test is NOT applicable for MALE patients.Check with nurse about probable order error.If Tumor Marker Test needed, nurse should order test "HCGTU"(Test #550.02950) [id number] 05:29:00* Test Item Value Reference Range [facility]ation [facility] (test code = TROPI) ng/mL 0-0.045 [id number] 05:19:00* Test Item Value Reference Range Interpretation Comme [facility] D-DIMER (test code = DDIMER) 344.00 ng/mLFEU 0-500 N Clinical Cut-off value for D-Dimer is 500 ng/mL FEU. Comment: The [employer] D-Dimer assay is intended for use asan aid in the diagnosis of venous thromboembolism (VTE)[deep vein thrombosis (DVT) or pulmonary embolism (PE)].The measurement of D-Dimer should not be used as an aid inthe diagnosis of VTE, in patient with: -Therapeutic dose anticoagulant therapy for >24 hours -Fibrinolytic therapy within previous 7 days -Trauma or surgery within previous 4 weeks -Disseminated malignancies -Aortic aneurysm -Sepsis, severe infections, pneumonia, severe skin infections -Liver cirrhosis - BASIC METABOLIC [id number] 05:17:00* Test Item Value Reference Range Interpretation Comme nts SODIUM (test code = NA) 140 mmol/L 136-145 N POTASSIUM (test code = K) 3.5 mmol/L 3.5-5.1 N CHLORIDE (test code = CL) 107.0 mmol/L 98-107 N CARBON DIOXIDE (test code = CO2) mmol/L 21-32 ANION GAP (test code = GAP) 10-20 GLUCOSE (test code = GLU) mg/dL 74-106 BLOOD UREA NITROGEN (test code = BUN) mg/dL 7-18 GLOMERULAR FILTRATION RATE (test code = GFR) mL/min See_Comment [Automated mes danielle] The system which generated this result transmitted reference range: >=60. The reference range was not used to interpret this result as normal/abnormal. CREATININE (test code = CREAT) mg/dL 0.55-1.02 BUN/CREATININE RATIO (test code = BUN/CREA) 10-20 CALCIUM (test code = CA) mg/dL 8.5-10.1 HEPATIC FUNCTION [id number] 05:17:00* Test Item Value Reference Range Interpretation Comme nts TOTAL PROTEIN (test code = PROT) gram/dL 6.4-8.2 ALBUMIN (test code = ALB) g/dL 3.4-5.0 GLOBULIN (test code = GLOB) gram/dL 2.7-4.2 ALBUMIN/GLOBULIN RATIO (test code = A/G) 0.75-1.50 BILIRUBIN TOTAL (test code = BILT) mg/dL 0.0-1.0 BILIRUBIN DIRECT (test code = BILD) mg/dL 0.0-0.20 SGOT/AST (test code = AST) IUnit/L 15-37 SGPT/ALT (test code = ALT) IUnit/L 12-78 ALKALINE PHOSPHATASE TOTAL ( test code = ALKP) IUnit/L 45-117 LACTIC DEHYDROGENASE(LDH)2020-12-06 05:17:00* Test Item Value Reference Range Interpretation Comme nts LACTIC DEHYDROGENASE(LDH) (t est code = LDH) IUnit/L 84-246 [id number] 05:17:00* Test Item Value Reference Range Interpretation Comme nts LIPASE (test code = LIP) U/L 73.0-393.0 HCG SERUM [id number] 05:17:00* Test Item Value Reference Range Interpretation Comme nts HCG SERUM QUAL (test code = HCGQL) NEGATIVE [id number] 05:17:00* Test Item Value Reference Range Interpretation Comme nts TROPONIN-I (test code = TROPI) ng/mL 0-0.045 CBC W/AUTO [id number] 05:04:00* Test Item Value Reference Range Interpretation Comme nts WHITE BLOOD CELL (test code = WBC) 4.1 K/mm3 4.5-12.5 L RED BLOOD CELL (test code = RBC) 4.53 mill/mm3 3.7-5.2 N HEMOGLOBIN (test code = HGB) 13.2 gram/dL 11.5-15.5 N HEMATOCRIT (test code = HCT) 40.6 % 36.0-46.0 N MEAN CELL VOLUME (test code = MCV) 89.6 fL 80-98 N MEAN CELL HGB (test code = MCH) 29.1 picogram 27.0-33.0 N MEAN CELL HGB CONCETRATION (test code = MCHC) 32.5 gram/dL 33.0-36.0 L RED CELL DISTRIBUTION WIDTH (test code = RDW) 12.3 % 11.6-16.2 N RED CELL DISTRIBUTION WIDTH SD (test code = RDW-SD) 40.1 fL 37.0-51.0 N PLATELET COUNT (test code = PLT) 236 K/mm3 150-450 N MEAN PLATELET VOLUME (test c ode = MPV) 10.6 fL 6.7-11.0 N NEUTROPHIL % (test code = NT%) 44.6 % 39.0-69.0 N IMMATURE GRANULOCYTE % (test code = IG%) 0.5 % 0.0-5.0 N LYMPHOCYTE % (test code = LY%) 48.1 % 25.0-55.0 N MONOCYTE % (test code = MO%) 6.1 % 0.0-10.0 N EOSINOPHIL % (test code = EO%) 0.5 % 0.0-5.0 N BASOPHIL % (test code = BA%) 0.2 % 0.0-1.0 N NUCLEATED RBC % (test code = NRBC%) 0.0 % 0-0 N NEUTROPHIL # (test code = NT#) 1.84 K/mm3 1.8-7.7 N IMMATURE GRANULOCYTE # (test code = IG#) 0.02 x10 3/uL 0-0.03 N LYMPHOCYTE # (test code = LY#) 1.98 K/mm3 1.0-5.0 N MONOCYTE # (test code = MO#) 0.25 K/mm3 0-0.8 N EOSINOPHIL # (test code = EO#) 0.02 K/mm3 0.0-0.5 N BASOPHIL # (test code = BA#) 0.01 K/mm3 0.0-0.2 N NUCLEATED RBC # (test code = NRBC#) 0.00 K/mm3 0.0-0.1 N - XR CHEST 1 [id number] 05:02:00 [facility])Name: OCTAVIANO LOPEZ : 2000 Sex: F FAX: Karan Prieto MD [place]: [address] St: REG Name: OCTAVIANO LOPEZ [facility] : 2000 Age/S: 20/F [address] [facility] Unit #: [id number] Loc: V.JOSE [place] [address] Phys: Karan Prieto MD Acct: [id number] Dis Date: Status: REG ER PHONE #: [phone] Exam Date: 12/06/2020 0500 FAX #: [phone] Reason: SHORTNESS OF BREATH EXAMS: CPT CODE: [id number] XR CHEST 1 V 03026 EXAM: Portable chest one view. Location code:J9 HISTORY: Shortness of breath COMPARISON: None available. COMMENT: . The lungs and pleural spaces are clear. Lungs are normally expanded. The aorta, pulmonary vasculature and mediastinumare within normal limits. Cardiac silhouette is normal in size and contour. Visualized skeletal structures are unremarkable. IMPRESSION: No active disease in the chest. at 0502 Reported and signed by: Kenneth Shea M.D. CC: Karan Prieto MD Technologist: Jeimy Butler Trnscrd Date/Time/By: 12/06/2020 (501) : By: [email or web address] Orig Print D/T: S: 12/06/2020 (0505) PAGE 1 Signed Report- XR CHEST 1 [id number] 05:02:00[facility])Name: OCTAVIANO LOPEZ : 2000 Sex: F FAX: Karan Prieto MD [place]: St: DEP Name: OCTAVIANO LOPEZ [facility] : 2000 Age/S: 20/F [facility] Unit #: [id number] Loc: JOSE [place] [address] Phys: Karan Prieto MD Acct: [id number] Dis Date: Status: DEP ER PHONE #: [phone] Exam Date: 12/06/2020 0500 FAX #: [phone] Reason: SHORTNESS OF BREATH EXAMS: CPT CODE: [id number] XR CHEST 1 V [id number] EXAM: Portable chest one view. Location code:J9 HISTORY: Shortness of breath COMPARISON: None available. COMMENT: . The lungs and pleuralspaces are clear. Lungs are normally expanded. The aorta, pulmonary vasculature and mediastinum arewithin normal limits. Cardiac silhouette is normal in size and contour. Visualized skeletal structures are unremarkable. IMPRESSION: No active disease in the chest. at 0502 Reported and signed by: Kenneth Shea M.D. CC: Karan Prieto MD Technologist: Jeimy Butler Trndylanrd Date/Time/By: 12/06/2020 (0502) : By: [email or web address] Orig Print D/T:S: 12/06/2020 (5437) PAGE 1 Signed ReportCOVID 19 INHOUSE [id number] 05:01:00* Test Item Value Reference Range Interpretation Comme nts COVID 19 INHOUSE AG (test co de = [id number]) NEGATIVE PROTHROMBIN [id number] 04:53:00* Test Item Value Reference Range Interpretation Comme nts PROTHROMBIN TIME PATIENT (test code = PTP) 13.9 seconds 9.0-14.0 N INTERNATIONAL NORMAL RATIO (test code = INR) 1.2 0.8-1.2 N The therapeutic range for oral anticoagulant therapy formost indications is an international normalized ratio (INR)of between 2.0 and 3.0. The recommended therapeutic INRrange for various clinical situations is listed below: Clinical Situation INR range Pulmonary embolism treatment (2.0-3.0)Venous thrombosis treatmentVenous thrombosis prophylaxis (high risk surgery)Prevention of systemic embolism from: Acute myocardial infarction Valvular heart disease Atrial fibrillation Mechanical prosthetic heart valves (2.5-3.5) IS PATIENT ON ANTICOAGULANTS? NPROFILE / [id number] 06:35:00* Test Item Value Reference Range Interpretation Comme nts WBC (test code = 6690-2) See_Comment H [Automated message] The system which generated this result transmitted reference range: 4.30 - 11.10 10*3/?L. The reference range was not used to interpret this result as normal/abnormal. RBC (test code = 789-8) See_Comment L [Automated message] The system which generated this result transmitted reference range: 3.93 - 5.25 10*6/?L. The reference range was not used to interpret this result as normal/abnormal. HGB (test code = 718-7) 7.6 g/dL 11.6-15 L HCT (test code = 4544-3) 24.1 % 35.7-45.2 L MCH (test code = 785-6) 27.0 pg 25.9-32.8 MCV (test code = 787-2) 85.5 fL 80.6-95.5 MCHC (test code = 786-4) 31.5 g/dL 31.6-35.1 L PLT (test code = 777-3) See_Comment [Automated message] The system which generated this result transmitted reference range: 166 - 358 10*3/?L. The reference range was not used to interpret this result as normal/abnormal. MPV (test code = 95937-6) 11.2 fL 9.5-12.9 RDW-CV (test code = 788-0) 15.2 % 12-15.5 RDW-SD (test code = 46243-9) 47.2 fL 39-49.9 NRBC x10^3 (test code = 6710692690) <0.01 See_Comment [Automated messa ge] The system which generated this result transmitted reference range: 10*3/?L. The reference range was not used to interpret this result as normal/abnormal. NRBC/100 WBC (test code = 4741799980) See_Comment [Automated messa ge] The system which generated this result transmitted reference range: 0.0 - 10.0 /100 WBCs. The reference range was not used to interpret this result as normal/abnormal. IPF % (test code = 4728555628) Lab Interpretation (test code = 18143-3) Abnormal [facility] IMMUNE [id number] 22:53:53* Test Item Value Reference Range Interpretation Comme nts RHIG CANDIDATE? (test code = 5055) No- see comment Patient is not a candidate for RhIg- Patient is Rh Positive.Performed at [facility] Laboratory Services [facility] Blood [address] [address]Eqay Free: [phone] No. [id number] [facility] CenterVENOUS CORD [id number] 19:27:00* Test Item Value Reference Range Interpretation Comme [facility] VENOUS BASE EXCESS, CORD (test code = 9507515840) mEq/L VENOUS PH, CORD (test code = 5755397027) 7.25-7.45 VENOUS PC02, CORD (test code = 1135640238) See_Comment [Automated messa ge] The system which generated this result transmitted reference range: 27 - 49 mmHg. The reference range was not used to interpret this result as normal/abnormal. VENOUS PO2, CORD (test code = 5532610229) See_Comment [Automated me ssage] The system which generated this result transmitted reference range: 17 - 41 mmHg. The reference range was not used to interpret this result as normal/abnormal. VENOUS BICARBONATE, CORD (test code = 1768750462) See_Comment [Automated messa ge] The system which generated this result transmitted reference range: 12 - 29 mEq/L. The reference range was not used to interpret this result as normal/abnormal. [facility] CenterGALV ONLY - SYPHILIS IGG/[id number] 15:14:00* Test Item Value Reference Range Interpretation Comme nts Syphilis IgG/IgM (test code = 34581-3) Non-reactive Non-reactive TERESA (test code = TERESA) Non-reactive - No serologic evidence of T. pallidum infection. Cannot exclude incubating or early syphilis. Submit a second specimen in 2-4 weeks if syphilis is clinically suspected. Equivocal - Further testing to follow. Reactive - Further testing to follow. Lab Interpretation (test code = 02593-6) [facility] WITH [id number] 05:04:00* Test Item Value Reference Range Interpretation Comme nts HIV Semi-quantitative (test code = 05161-3) Negative Negative TERESA (test code = TERESA) Non-reactive for HIV-1 antigen and HIV-1/HIV-2 antibodies. ?No laboratory evidence of HIV infection. ?Repeat in 2-4 weeks if acute HIV infection is suspected. [facility] CenterHepatitis B Surface [id number] 04:57:00 * Test Item Value Reference Range Interpretation Comme nts HBsAg Semi-Quantitative (jonathan t code = 5195-3) Negative Negative [facility] CenterType and Screen - ONCE [id number] 04:22:21 * Test Item Value Reference Range Interpretation Comme nts ABO & RH (test code = 20) O POSITIVE Performed at [facility] Laboratory Services - [facility] Blood [place] [address]Toll Free: [phone] No. [id number] IAT (test code = 1185) Negative Performed at [facility] Laboratory Services - [facility] Blood [place] [address]Toll Free: [phone] No. [id number] [facility] CenterCBC WITH [id number] 03:56:00* Test Item Value Reference Range Interpretation Comme nts WBC (test code = 6690-2) See_Comment H [Automated messa ge] The system which generated this result transmitted reference range: 4.30 - 11.10 10*3/?L. The reference range was not used to interpret this result as normal/abnormal. RBC (test code = 789-8) See_Comment L [Automated messa ge] The system which generated this result transmitted reference range: 3.93 - 5.25 10*6/?L. The reference range was not used to interpret this result as normal/abnormal. HGB (test code = 718-7) 9.6 g/dL 11.6-15 L HCT (test code = 4544-3) 30.6 % 35.7-45.2 L MCV (test code = 787-2) 82.9 fL 80.6-95.5 MCH (test code = 785-6) 26.0 pg 25.9-32.8 MCHC (test code = 786-4) 31.4 g/dL 31.6-35.1 L RDW-SD (test code = 08150-0) 46.7 fL 39-49.9 RDW-CV (test code = 788-0) 15.6 % 12-15.5 H PLT (test code = 777-3) See_Comment [Automated messa ge] The system which generated this result transmitted reference range: 166 - 358 10*3/?L. The reference range was not used to interpret this result as normal/abnormal. MPV (test code = 40145-2) 11.3 fL 9.5-12.9 NRBC/100 WBC (test code = 5367413724) See_Comment [Automated GB Environmental ssage] The system which generated this result transmitted reference range: 0.0 - 10.0 /100 WBCs. The reference range was not used to interpret this result as normal/abnormal. NRBC x10^3 (test code = 5734502579) <0.01 See_Comment [Automated messa ge] The system which generated this result transmitted reference range: 10*3/?L. The reference range was not used to interpret this result as normal/abnormal. GRAN MAT (NEUT) % (test code = 770-8) 73.8 % IMM GRAN % (test code = 0506487677) 0.50 % LYMPH % (test code = 736-9) 20.0 % MONO % (test code = 5905-5) 4.8 % EOS % (test code = 713-8) 0.5 % BASO % (test code = 706-2) 0.4 % GRAN MAT x10^3(ANC) (test code = 4663035903) 8.42 10*3/uL 1.88-7.09 H IMM GRAN x10^3 (test code = 4774940891) 0.06 10*3/uL 0-0.06 LYMPH x10^3 (test code = 731-0) 2.28 10*3/uL 1.32-3.29 MONO x10^3 (test code = 742-7) 0.55 10*3/uL 0.33-0.92 EOS x10^3 (test code = 711-2) 0.06 10*3/uL 0.03-0.39 BASO x10^3 (test code = 704-7) 0.04 10*3/uL 0.01-0.07 Lab Interpretation (test code = 29559-5) Abnormal [facility] WITH [id number] 18:39:00* Test Item Value Reference Range Interpretation Comme nts WBC (test code = 6690-2) See_Comment [Automated messa ge] The system which generated this result transmitted reference range: 4.30 - 11.10 10*3/?L. The reference range was not used to interpret this result as normal/abnormal. RBC (test code = 789-8) See_Comment L [Automated Controlusa ge] The system which generated this result transmitted reference range: 3.93 - 5.25 10*6/?L. The reference range was not used to interpret this result as normal/abnormal. HGB (test code = 718-7) 9.6 g/dL 11.6-15 L HCT (test code = 4544-3) 29.9 % 35.7-45.2 L MCV (test code = 787-2) 84.9 fL 80.6-95.5 MCH (test code = 785-6) 27.3 pg 25.9-32.8 MCHC (test code = 786-4) 32.1 g/dL 31.6-35.1 RDW-SD (test code = 82650-7) 44.5 fL 39-49.9 RDW-CV (test code = 788-0) 14.5 % 12-15.5 PLT (test code = 777-3) See_Comment [Automated messa ge] The system which generated this result transmitted reference range: 166 - 358 10*3/?L. The reference range was not used to interpret this result as normal/abnormal. MPV (test code = 24619-7) 11.6 fL 9.5-12.9 NRBC/100 WBC (test code = 0747094562) See_Comment [Automated GB Environmental ssage] The system which generated this result transmitted reference range: 0.0 - 10.0 /100 WBCs. The reference range was not used to interpret this result as normal/abnormal. NRBC x10^3 (test code = 4541356259) <0.01 See_Comment [Automated messa ge] The system which generated this result transmitted reference range: 10*3/?L. The reference range was not used to interpret this result as normal/abnormal. GRAN MAT (NEUT) % (test code = 770-8) 73.2 % IMM GRAN % (test code = 7864710547) 1.40 % LYMPH % (test code = 736-9) 20.0 % MONO % (test code = 5905-5) 4.8 % EOS % (test code = 713-8) 0.4 % BASO % (test code = 706-2) 0.2 % GRAN MAT x10^3(ANC) (test code = 6559598917) 7.40 10*3/uL 1.88-7.09 H IMM GRAN x10^3 (test code = 0235406560) 0.14 10*3/uL 0-0.06 H LYMPH x10^3 (test code = 731-0) 2.02 10*3/uL 1.32-3.29 MONO x10^3 (test code = 742-7) 0.48 10*3/uL 0.33-0.92 EOS x10^3 (test code = 711-2) 0.04 10*3/uL 0.03-0.39 BASO x10^3 (test code = 704-7) <0.03 0.01-0.07 Lab Interpretation (test code = 46908-4) Abnormal [facility] URINALYSIS W SPECIFIC [id number] 16:21:00* Test Item Value Reference Range Interpretation Comme nts POCT U SP GRAV (test code = 3255) na 1.005-1.025 POCT PH U (test code = 3254) na 5-8 POCT U LEUK EST (test code = 3263) na Negative - Negative POCT U NIT (test code = 3262) na Negative - Negati ve POCT U PROT (test code = 3259) TRACE Negative - Negat vanesa POCT U GLU (test code = 3256) NEGATIVE Negative - Negati ve POCT U KETONE (test code = 3258) na Negative - Neg ative POCT U UROBILI (test code = 3260) na 0.2-1 POCT U BILI (test code = 3261) na Negative - Negat vanesa POCT U BLD (test code = 3257) na Negative - Negati ve POCT U COLOR (test code = 3266) POCT U APPEAR (test code = 3267) Lab Interpretation (test cod e = 14868-2) Abnormal [facility] CenterQUAD [id number] 19:01:00* Test Item Value Reference Range Interpretation Comments RACE (test code = 9698460078) WEIGHT (test code = 6934465453) lbs GEST. AGE (test code = 3488105988) 17,0 Gestational a ge reflects sample collection date. Previous preliminary verified result was 7,2 on 07/06/2019 at 1232 CDT INS. DEP (test code = 4340336001) No LMP (test code = 3489846735) US DATE (test code = 2054884302) PE DATE (test code = 7562215758) METHOD (test code = 8620981719) US MULT GEST (test code = 7735209222) No NTD HX (test code = 1972068299) No INITAL OR REPEAT (test code = 6522050859) Initial Testing SMOKER (test code = 0777812511) No INHIBIN (test code = 3022634004) 131.5 pg/mL AFP-MS (test code = 6469021111) 36.3 ng/mL ESTRIOL (test code = 1901205219) 1.44 ng/mL BHCG DOWNS (test code = 6811431744) mIU/mL AFP-MS MoM (test code = 5720100524) BHCG MoM (test code = 5500319727) INHIBIN MoM (test code = 6482287849) E3 MoM (test code = 0878941641) EQ AGE RSK (test code = 3045455996) < 15.0 less than jamari t of a 15.0 year old DS APR (test code = 6354903411) 1:1170 DS INTERP (test code = 8225406068) See Note The risk of D own syndrome is LESS than the screening cut-off. Nofollow-up is indicated regarding this result. DS RSK (test code = 7980382552) 1:26401 The risk at mid-trimester is equal to 1:05529 DS SCRN (test code = 0343666563) Negative TRISOMY 18 (test code = 0336962908) See Note These serum m arker levels are not consistent with the pattern seen inTrisomy 18 pregnancies. Maternal serum screening will detectapproximately 60% of Trisomy 18 pregnancies. ES RSK (test code = 2666157661) 1:79876 The risk of Wilberto danyell 18 is equal to 1:11726Zap Trisomy 18 cut-off is 1:30 ES SCRN (test code = 5859938171) Negative OSB INTERP (test code = 5763597370) See Note The maternal serum AFP result is NOT elevated for a of thisgestational age. The risk of an open neural tube defect is less thanthe screening cut-off. OSB RSK (test code = 4709198831) 1:96784 The risk of OSB is equal to 1:57839Wut OSB cut-off is 2.50 (1:104) OSB SCRN (test code = 2203638895) Negative INTERPRETATION (test code = 9263995630) N INTERPRETATION: SCREEN NEGATIVE [facility] URINALYSIS W SPECIFIC [id number] 16:12:00* Test Item Value Reference Range Interpretation Comme nts POCT U SP GRAV (test code = 3255) . 1.005-1.025 POCT PH U (test code = 3254) .. 5-8 POCT U LEUK EST (test code = 3263) . Negative - Negative POCT U NIT (test code = 3262) . Negative - Negati ve POCT U PROT (test code = 3259) trace Negative - Negat vanesa POCT U GLU (test code = 3256) negative Negative - Negati ve POCT U KETONE (test code = 3258) , Negative - Neg ative POCT U UROBILI (test code = 3260) . 0.2-1 POCT U BILI (test code = 3261) . Negative - Negat vanesa POCT U BLD (test code = 3257) . Negative - Negati ve POCT U COLOR (test code = 3266) . POCT U APPEAR (test code = 3267) Lab Interpretation (test cod e = 44673-2) Abnormal [facility] CenterHIV [id number] 12:35:00* Test Item Value Reference Range Interpretation Comme nts HIV 1/2 Antibody (test code = HIV1/2AB) Non-Reactive Non-Reactive N HIV1/2 Antibody screen result indicates the absence of HIV1 and GHO5mpcchgxta.However, A Non-Reactive screen result does not rule out exposure orinfection. If an acute infection is suspected, HIV RNA Quantitative is recommended. P24 Antigen (test code = P24) Non-Reactive Non-Reactive N P24 Ag screen re sult indicates the absence of P24 antigen, which is anindicator of HIV-1 acute infection.However, A Non-Reactive screen does not rule out exposure or infection.If acute HIV-1 is suspected, HIV RNA Quantitative is recommended. Hepatitis Acute [id number] 07:55:00* Test Item Value Reference Range Interpretation Comme nts Hep Bs Ag (test code = HBSAG) Nonreactive Non-Reactive A Hep C Ab (test code = HCAB) Reactive Non-Reactive A A Reactive resul t may indicate a past or present HCV infection orpossibly a carrier state. It is not diagnostic of Hepatitis C.However, a patient with a repeatedly Reactive result should beconsidered infectious. Reactive for HCV antibody by EIA screeningshould be confirmed by a supplemental test. Hepatitis A IgM (test code = HAVM) Nonreactive Non-Reactive A Hep B Core IgM (test code = HBCABM) Nonreactive Non-Reactive A RPR, [id number] 13:01:00* Test Item Value Reference Range Interpretation Comme nts RPR (test code = RPR) Non-Reactive Non-Reactive N Thyroid Stimulating Hormone (TSH)2017-03-28 08:20:00* Test Item Value Reference Range Interpretation Comme nts TSH (test code = TSH) 3.35 mIU/mL 0.270-4.200 N Lipid [id number] 07:58:00* Test Item Value Reference Range Interpretation Comme nts Cholesterol (test code = CHOL) 155 mg/dL 0-200 N Triglycerides (test code = TRIG) 95 mg/dL 9-200 N HDL (test code = HDL) 50 mg/dL 50-60 N Chol/HDL (test code = CHOLPHDL) 3.1 Ratio 0.0-4.4 N LDL, Calculated (test code = LDLC) 86 mg/dL 0-130 N (NOTE)RISK OF HEART DISEASEPublished by [place] Citizen Heart AssociationAnalyte Optimal Boderline Increased RiskCHOL <200 200-239 >240TRIG <150 150-199 >200HDL Male: >60 <40HDL Female: >60 <50LDL <100 130-159 >160LDL NEAR OPTIMAL IS 100-129 VLDL (test code = VLDL) 19 mg/dL 5-40 N LDL/HDL (test code = LDLPHDL) 2 Notes Date/Time Note Provider Source 2023-05-27 15:15:00 Formatting of this n ote is different from the original. Images from the original note were not included. Venipuncture collection performed by clean technique on the left anticubitus. Total of 1 attempts were made. Slight pressure and a bandage/dressing were applied to the site(s). The patient experienced no complications. The following specimens were processed according to instructions and sent to [facility] laboratories per lab order on 05/27/2023 : LT BLUE SST 1 RED LAV PPT DK GREEN (LiHep) DK GREEN (SodH) WELLS DK BLUE (K2) DK BLUE (S) ACD Blood Culture NIPT/NTD [facility] 2022-08-02 21:35:00 [facility] ([facility]) EMERGENCY PROVIDER REPORT REPORT#:[id number] REPORT STATUS: Signed DATE:08/02/22 TIME: 2134 PATIENT: OCTAVIANO LOPEZ UNIT #: [id number] ROOM/BED: AGE: 22 SEX: F PCP PHYS: No Primary or Family Physician SERVICE AUTHOR: Mariana Rhoades DO * ALL edits or amendments must be made on the electronic/computer document * HPI-Dental/Mouth Prob General Initial Greet Date/Time 08/02/222049 Presentation Chief Complaint Tooth pain Free Text HPI Notes Free Text HPI Notes 22 YOF presents to the ED with CC of dental pain Free Text ROS Notes Constitutional: [Patient denies recent illness fever injury] Musculoskeletal:Denies back pain, den dec ROM, den swelling or numbness, den extremit pain Pulm: [pt denies cough, dyspnea] Chest: [pt denies chest pain, palpitations] Lymph: [Patient denies palpable lymph nodes or ankle swelling] GI: [Patient denies abdominal pain, nausea, vomiting, diarrhea and black stools] : [Patient denies problems with urination] Eyes: [Patient denies problems with vision] HEENT: [Patient denies sore throat, difficulty swallowing, rep tooth pain] Skin: [Patient denies rash, redness] Endo: [Patient denies recent weight change] Neuro:[Patient denies headache or syncope] Psych: [Patient denies anxiety or depression, denies SI] All other systems reviewed and negative Free Text PE Notes General: [patient in no acute distress, appears stated age] HEENT:poor overall dentition. No periapical abscess Neck: [Trachea is midline, no JVD present, no subcutaneous emphysema] Chest: [Breath sounds are present in all hernandez, no wheezes rales or rhonchi, equal excursion normal respiratory effort] Cardiovascular:[Regular rate and rhythm with no rubs murmurs or gallops, ] Extremities: [Normal range of movement active and passive, 2+ pulses in all extremities, no edema, normal color] Neuro: [Cranial nerves II through XII grossly intact, patient able to move all extremities, no focal neuro deficits] Psych: [Appropriate mood and affect] Back: No TTP, no crepitus, no palpable stepoffs or deformities. Abdomen: [Abdomen is soft non-tender non-distended, no pulsatile masses, no abdominal bruits, normal bowel sounds] Past Medical History - Adult Stated Complaint TOOTHACHE Allergies Coded Allergies: No Known Allergies (12/06/20) Home Medications Active Scripts ONDANSETRON ODT (ZOFRAN ODT) 4 MG PO Q8H PRN PRN NAUSEA/VOMITING ONDANSETRON ODT (ZOFRAN ODT) 4 MG PO Q8H PRN PRN NAUSEA/VOMITING #15 TABS Prov: 12/06/20 IBUPROFEN (ADVIL) 400 MG PO Q6H PRN PAIN IBUPROFEN (ADVIL) 400 MG PO Q6H PRN PAIN #60 TABS Prov: 12/06/20 ACETAMINOPHEN (TYLENOL) 325 MG PO Q6H PRN PRN PAIN ACETAMINOPHEN (TYLENOL) 325 MG PO Q6H PRN PRN PAIN #60 TABS Prov: 12/06/20 Smoking status for patients 13 years old or older: Never Smoker Physical Exam Vital Signs Vital Signs First Documented: Result Date Time Pulse Ox 99 08/02 2036 B/P 135/85 08/02 2036 B/P Mean 101 08/02 2036 O2 Delivery Room air 08/02 2036 Temp 37.1 08/02 2036 Pulse 98 08/02 2036 Resp 20 08/02 2036 Last Documented: Result Date Time Pulse Ox 99 08/02 2036 B/P 135/85 08/02 2036 B/P Mean 101 08/02 2036 O2 Delivery Room air 08/02 2036 Temp 37.1 08/02 2036 Pulse 98 08/02 2036 Resp 20 08/02 2036 Review of Vital Signs Reviewed Re-Evaluation MDM Re-Evaluation/Progress Re-Evaluation/Progress Time of Re-Eval 2119 Re-Eval Status Improved ED Course Medication(s) Ordered Medication(s) Ordered: Central Nervous System Agents Sig/Stevie Start time Last Medication Dose Route Stop Time Status Admin Ketorolac 30 MG X1ED STA 08/02 2135 DC Tromethamine IM 08/02 2136 Patient Discharge Departure Vital Signs/Condition Vital Signs First Documented: Result Date Time Pulse Ox 99 08/02 2036 B/P 135/85 08/02 2036 B/P Mean 101 08/02 2036 O2 Delivery Room air 08/02 2036 Temp 37.1 08/02 2036 Pulse 98 08/02 2036 Resp 20 08/02 2036 Last Documented: Result Date Time Pulse Ox 99 08/02 2036 B/P 135/85 08/02 2036 B/P Mean 101 08/02 2036 O2 Delivery Room air 08/02 2036 Temp 37.1 08/02 2036 Pulse 98 08/02 2036 Resp 20 08/02 2036 All vital signs available at the time of this entry have been reviewed. Clinical Impression Clinical Impression Primary Impression: Pain, dental Disposition Decision Discharge )( Discharged to Home Yes )( Time 2138 )( Date 08/02/22 Discharge/Care Plan Counseled Regarding Diagnosis, Lab results, Imaging studies, Prescriptions, Need for follow-up, When to return to ED Prescriptions Motrin 800, Amocicillin (Auto) Prescriptions Current Visit Scripts IBUPROFEN (MOTRIN) 800 MG PO BID PRN PRN PAIN IBUPROFEN (MOTRIN) 800 MG PO BID PRN PRN PAIN #15 TABS AMOXICILLIN (AMOXIL) 875 MG PO Q12HR 14 Days #28 TABS Prescriptions Reviewed Risks, Benefits, Alternative treatment Patient Instructions ED Dental Pain Additional Instructions Follow-up with your regular doctor in 2 to 3 days. [facility]errals [facility] Address: [address] [place] [address] Discharge Note I have spoken with the patient and/or caregivers. I have explained the patient's condition, diagnoses and treatment plan based on the information available to me at this time. I have answered the patient's and/or caregiver's questions and addressed any concerns. The patient and/or caregivers have as good an understanding of the patient's diagnosis, condition and treatment plan as can be expected at this point. The vital signs have been stable. The patient's condition is stable and appropriate for discharge from the emergency department. The patient will pursue further outpatient evaluation with the primary care physician or other designated or consulting physician as outlined in the discharge instructions. The patient and/or caregivers are agreeable to this plan of care and follow-up instructions have been explained in detail. The patient and/or caregivers have received these instructions in written format and have expressed an understanding of the discharge instructions. The patient and/or caregivers are aware that any significant change in condition or worsening of symptoms should prompt an immediate return to this or the closest emergency department or a call to 911. at 0832 RPT #:[id number] END OF REPORT [facility] 2020-12-06 06:02:00 [facility] ([facility]) EMERGENCY PROVIDER REPORT REPORT#:[id number] REPORT STATUS: Signed DATE:12/06/20 TIME: 06 PATIENT: OCTAVIANO LOPEZ UNIT #: [id number] ROOM/BED: AGE: 20 SEX: F PCP PHYS: No Primary or Family Physician SERVICE AUTHOR: Karan Prieto MD * ALL edits or amendments must be made on the electronic/computer document * HPI-General Illness General Confirmed Patient Yes Initial Greet Date/Time 12/06/20 0412 Presentation Chief Complaint __ (Multiple) Hx Obtained From Patient Sudden in Onset? No Onset Occurred Days ago Caused by No trauma by history Location Head, Chest Quality Painful Radiation No: Does not radiate. Severity: Onset Mild Severity: Current Mild Free Text HPI Notes Free Text HPI Notes 20-year-old female, no severe past medical history, no risk factors for liver disease and denies pathology. Patient reports 3 to 4 days of multiple symptoms. Nonproductive cough, fever with a T-max of 100.6, headache, pleuritic chest pain, vomiting with some scant blood. Patient denies the following: - Blood thinner use - Symptoms of hypovolemia/anemia - Melena or bleeding from other location Patient denies the following: - Exertional pain - New preceding/recent anginal history - Known CAD - Recent stimulant use - Classic risk factors for DVT/PE or hemoptysis - FHx of sudden cardiac Patient denies the following risk factors: - Trauma, anticoagulation - HIV/AIDS, IVDU - Active cancer - Contacts with similar headaches - FHx of brain aneurysm Patient also denies the following associated symptoms: - Sudden onset or worst headache of life - Syncope - Acute change in vision - Acute neurologic symptoms Review of Systems ROS Statements All systems rev neg except as marked. Free Text ROS Notes Free Text ROS Notes General: Endorses fevers, denies rigors Cardiovascular: Endorses chest pain, denies sycnope Pulmonary: Endorses cough, denies shortness of breath GI: denies change in bowel habits, denies abdominal pain, endorses vomiting with some scant blood : denies change in urinary habits Also of note: - Chronic conditions/symptoms are considered negative if at baseline - Additional ROS may be present in HPI Past Medical History - Adult Stated Complaint COUGH, CHEST PAIN, VOMITED BLOOD, FEVER Allergies Coded Allergies: No Known Allergies (12/06/20) Review of Nursing Notes Rev avail, and agree Pt reports no significant: Past medical history, Social history Smoking status: Smoking status for patients 13 years old or older: Never Smoker Physical Exam Vital Signs Vital Signs First Documented: Result Date Time Pulse Ox 97 12/06 410 B/P 125/92 12/061 B/P Mean 103 12/06 410 Temp 37.1 12/06 410 Pulse 107 12/06 410 Resp 18 12/06 410 O2 Delivery Room air 12/06 609 Last Documented: Result Date Time Pulse Ox 98 12/06 609 B/P 122/87 12/06 609 B/P Mean 98 12/06 609 O2 Delivery Room air 12/06 609 Temp 36.7 12/06 609 Pulse 91 12/06 609 Resp 18 12/06 609 Review of Vital Signs Reviewed, Vital signs abnormal Basic Physical Exam Basic PE GEN: Well appearing/NAD, HEAD: Atraumatic/NC, EYES: PERRL, conj clear, ENT: Membranes moist, NECK: Supple, RESP: No resp distress, CV: Reg rate rhythm, ABD: Soft/non-tender, EXT: No gross abnormality, SKIN: No rashes, warm/ dry, NEURO: alert oriented, NEURO: gross movement NL, PSYCH: NL thought content Free Text PE Notes Free Text PE Notes Chest pain reproducible with palpation: Yes Heart Sounds: Normal S1 and S2, no abnormal heart sounds 2+ pulses in all 4 extremities No evidence of acute DVT Also of Note: General: awake and alert, not toxic appearing, no acute distress Head: normocephalic, no acute traumatic abnormalities Pulmonary: no respiratory distress, CTAB, no stridor Abdomen: soft, NTND Neuro: No meningismus. Neck supple with full effortless flexion. Negative jolt accentuation test. No purpuric rash. Appropriate/baseline mental status, cognition, strength, and sensation. CN II- XII intact. PERRL and cornea not hazy. No difficulty with finger to nose or rapid alternating head movements. Baseline ambulation. Extremities: no acute deformities, appropriate ROM Skin: no acute appearing rashes, well perfused Eyes: no acute deformities, lids unremarkable ENT: pink mucosa, patent nares Neck: trachea midline, appropriate ROM Patient declines rectal exam Interpretation Diagnostics Lab Results Interpretation Considerations Reviewed prior records Results Laboratory Tests 12/06/208: [Embedded Image Not Available] Laboratory Tests: 12/06 12/06 12/06 0448 0418 0418 Chemistry Lactic Acid (0.4 - 1.9 mmol/L) 1.0 B-Natriuretic Peptide (0 - 100 pgram/mL) 3.84 Coagulation D-Dimer (0 - 500 ng/mLFEU) 344.00 12/06 0418 Chemistry Sodium (136 - 145 mmol/L) 140 Potassium (3.5 - 5.1 mmol/L) 3.5 Chloride (98 - 107 mmol/L) 107.0 Carbon Dioxide (21 - 32 mmol/L) 24.0 Anion Gap (10 - 20) 12.5 BUN (7 - 18 mg/dL) 10 Creatinine (0.55 - 1.02 mg/dL) 0.70 Glomerular Filtr Rate (>=60 mL/min) > 60 BUN/Creatinine Ratio (10 - 20) 13.9 Glucose (74 - 106 mg/dL) 95 Calcium (8.5 - 10.1 mg/dL) 8.9 Total Bilirubin (0.0 - 1.0 mg/dL) 0.40 Direct Bilirubin (0.0 - 0.20 mg/dL) 0.09 AST (15 - 37 IUnit/L) 39 H ALT (12 - 78 IUnit/L) 63 Total Alk Phosphatase (45 - 117 IUnit/L) 84 Lactate Dehydrogenase (84 - 246 IUnit/L) 199 Troponin I (0 - 0.045 ng/mL) <0.015 Total Protein (6.4 - 8.2 gram/dL) 7.7 Albumin (3.4 - 5.0 g/dL) 3.7 Globulin (2.7 - 4.2 gram/dL) 4.0 Albumin/Globulin Ratio (0.75 - 1.50) 0.9 Lipase (73.0 - 393.0 U/L) 91 Serum , Qual (NEGATIVE) NEGATIVE Coagulation INR (0.8 - 1.2) 1.2 PT Patient/Control Mix (9.0 - 14.0 seconds) 13.9 Hematology WBC (4.5 - 12.5 K/mm3) 4.1 L RBC (3.7 - 5.2 mill/mm3) 4.53 Hgb (11.5 - 15.5 gram/dL) 13.2 Hct (36.0 - 46.0 %) 40.6 MCV (80 - 98 fL) 89.6 MCH (27.0 - 33.0 picogram) 29.1 MCHC (33.0 - 36.0 gram/dL) 32.5 L RDW (11.6 - 16.2 %) 12.3 RDW Std Deviation (37.0 - 51.0 fL) 40.1 Plt Count (150 - 450 K/mm3) 236 MPV (6.7 - 11.0 fL) 10.6 Neut % (Auto) (39.0 - 69.0 %) 44.6 Lymph % (Auto) (25.0 - 55.0 %) 48.1 Beckham % (Auto) (0.0 - 10.0 %) 6.1 Eos % (Auto) (0.0 - 5.0 %) 0.5 Baso % (Auto) (0.0 - 1.0 %) 0.2 Neut # (Auto) (1.8 - 7.7 K/mm3) 1.84 Lymph # (Auto) (1.0 - 5.0 K/mm3) 1.98 Beckham # (Auto) (0 - 0.8 K/mm3) 0.25 Eos # (Auto) (0.0 - 0.5 K/mm3) 0.02 Baso # (Auto) (0.0 - 0.2 K/mm3) 0.01 Nucleated RBC % (0 - 0 %) 0.0 Nucleated RBCs # (Man) (0.0 - 0.1 K/mm3) 0.00 Serology SARS-CoV-2 Ag (Rapid) NEGATIVE Urines Urine Color (YELLOW) YELLOW Urine Appearance (CLEAR) HAZY H Urine pH (5.0 - 8.0) 6.0 Ur Specific [place] (1.001 - 1.035) 1.020 Urine Protein (NEGATIVE mg/dL) 20 (Trace) H Urine Glucose (UA) (NEGATIVE mg/dL) NEGATIVE Urine Ketones (NEGATIVE mg/dL) NEGATIVE Urine Blood (NEGATIVE mg/dL) Negative Urine Nitrite (NEGATIVE) NEGATIVE Urine Bilirubin (NEGATIVE mg/dL) NEGATIVE Urine Urobilinogen (NEGATIVE mg/dL) Normal Ur Leukocyte Esterase (NEGATIVE Julia/uL) 75 Julia/uL (1+) H Urine RBC (0 - 5 #/HPF) 3-5 Urine WBC (0 - 5 per HPF) 6-10 H Ur Epithelial Cells (FEW per HPF) MANY Urine Bacteria (NONE #/HPF) FEW H Urine Mucus (FEW #/LPF) FEW Microbiology: Date/Time Procedure - Status Source Growth 12/06 431 Blood Culture - RECD BLOOD 12/06 417 Urine Culture - RECD URINE 12/06 417 Blood Culture - RECD BLOOD Recent Impressions: RADIOLOGY - XR CHEST 1 V 12/06 0500 Report Impression - Status: SIGNED Entered: 12/06/2020 0505 IMPRESSION: No active disease in the chest. Impression By: Rachel Shea M.D. Lab Imaging Statement Laboratory radiographic studies reviewed and considered in the medical decision-making. ECG #1 Interpretation Text/Dict Note EKG interpreted by physician and performed December 06, 2020, at 4:20 AM. Normal sinus rhythm rate 96, no STEMI, adequate tracing, normal intervals, nonspecific ST, T wave abnormality Re-Evaluation MDM Free Text MDM Notes Free Text MDM Notes 20-year-old female, here with multiple complaints. Negative work-up. She decision for discharge home. Low risk for clinically significant upper GI bleed. Low risk by heart. Low risk by [place] Re-Evaluation/Progress #1 Time of Re-Eval 0603 Re-Eval Status Improved ED Course Medication(s) Ordered Medication(s) Ordered: Central Nervous System Agents Sig/Stevie Start time Last Medication Dose Route Stop Time Status Admin Acetaminophen 650 MG X1ED STA 12/068 DC 12/06 PO 12/06 0439 0519 Electrolytic, Caloric, And Flower Sig/Stevie Start time Last Medication Dose Route Stop Time Status Admin Sodium Chloride 1,000 ML X1ED STA 12/06 0412 DC 12/06 IV 12/06 0511 0430 Gastrointestinal Drugs Sig/Stevie Start time Last Medication Dose Route Stop Time Status Admin Metoclopramide HCl 10 MG X1ED STA 12/06 0439 DC 12/06 IV 12/06 0440 0518 Patient Discharge Departure Vital Signs/Condition Vital Signs First Documented: Result Date Time Pulse Ox 97 12/061 B/P 125/92 12/06 410 B/P Mean 103 12/06 410 Temp 37.1 12/06 410 Pulse 107 12/061 Resp 18 12/06 410 O2 Delivery Room air 12/06 609 Last Documented: Result Date Time Pulse Ox 98 12/06 609 B/P 122/87 12/06 609 B/P Mean 98 12/06 609 O2 Delivery Room air 12/06 609 Temp 36.7 12/06 609 Pulse 91 12/06 609 Resp 18 12/06 609 All vital signs available at the time of this entry have been reviewed. Clinical Impression Clinical Impression Primary Impression: Cough Secondary Impressions: Fever, Vomiting Disposition Decision Discharge )( Discharged to Home Yes )( Time 06 )( Date 12/06/20 Discharge/Care Plan Counseled Regarding Diagnosis, Lab results, Imaging studies, Need for follow-up, When to return to ED (Auto) Prescriptions Current Visit Scripts ONDANSETRON ODT (ZOFRAN ODT) 4 MG PO Q8H PRN PRN NAUSEA/VOMITING ONDANSETRON ODT (ZOFRAN ODT) 4 MG PO Q8H PRN PRN NAUSEA/VOMITING #15 TABS IBUPROFEN (ADVIL) 400 MG PO Q6H PRN PAIN IBUPROFEN (ADVIL) 400 MG PO Q6H PRN PAIN #60 TABS ACETAMINOPHEN (TYLENOL) 325 MG PO Q6H PRN PRN PAIN ACETAMINOPHEN (TYLENOL) 325 MG PO Q6H PRN PRN PAIN #60 TABS Take 1-2 Tablets Patient Instructions ED Chest Pain, Uncertain Cause, ED Upper GI Bleeding ( Stable), ED Viral Syndrome (Adult) Additional Instructions As we discussed, it is not clear exactly what is causing your symptoms, but there is no evidence of a scary or dangerous cause at this at this time. Please return for any concerns including new, worsening, or persistent symptoms. As we discussed, it is possible but unlikely that you have coronavirus, given that your rapid test is negative. Please, however, stay away from all high risk contacts, and return for any new/worsening/persistent symptoms. Referrals PRIMARY CARE Departure Forms FREE OR L[facility] COST CLINICS at [address] [facility] #:[phone] END OF REPORT [facility]
[2025-03-18] MEDS ORDERED: ONDANSETRON 4 MG/2 ML VIAL ONE (23:32)
[2025-03-18] MEDS ORDERED: KETOROLAC 30 MG/ML INJ ONE (23:32)
[2025-03-18] MEDS ORDERED: NA CHLORIDE 0.9% 1,000 ML ONE (23:32)
[2025-03-19 00:08] LABS: Absolute Eosinophils 0.1 K/uL (0-0.5); Absolute Lymphocytes (CBC) 3.1 K/uL (0.7-4.9); Absolute Monocytes 0.4 K/uL (0.1-1.3); Absolute Neutrophil 6.8 K/uL (1.8-8.0); Basophils % 0.2 % (0-1.3); Hematocrit 38.4 % (36.0-45.0); Lymphocytes % 29.7 % (15.3-44.8); MCH 28.2 pg (27.0-35.0); MCHC 33.9 g/dL (32.0-36.0); MCV 83.3 fL (80-100); MPV 8.9 fL (7.6-11.3); Monocytes % 3.8 % (3.3-12.3); Neutrophils % 65.3 % (41.7-73.7); Nucleated Red Blood Cells % 0.3 % (0-0); Platelets 274 thou/uL (152-406); Red Cell Distribution Width 13.7 % (12.1-15.2)
[2025-03-19 00:21] LABS: Albumin 3.5 g/dL (3.4-5.0); Albumin/Globulin Ratio 0.9 (1.1-1.8); Anion Gap 6.7 mEq/L (5.0-15.0); Bilirubin Total 0.5 mg/dL (0.2-1.0); Globulin 4.1 g/dL (2.3-3.5); Potassium 3.7 mEq/L (3.5-5.1); Protein, Total 7.6 g/dL (6.4-8.2)
[2025-03-19 00:24] LABS: Specific Gravity > 1.030 (1.005-1.030)
[2025-03-19 00:25] LABS: Specific Gravity > 1.030 (1.005-1.030); Urine Bacteria 20-50 /HPF (<20); Urine Bilirubin NEGATIVE (Negative); Urine Blood Negative (Negative); Urine Clarity Turbid (Clear); Urine Color Yellow (Yellow); Urine Culture Reflex Order NOT NEEDED; Urine Glucose NEGATIVE (Negative); Urine Ketones NEGATIVE (Negative); Urine Microscopic Reflex YN ORDER UMIC; Urine Mucus 4+ /HPF (None Seen); Urine Nitrite NEGATIVE (Negative); Urine Protein TRACE (Negative); Urine RBC None Seen /HPF (None Seen); Urine Urobilinogen 2+ (Normal); Urine WBC <5 /HPF (<5)
--- NOTE | 2025-03-19 02:04 | ER ---
Nurse's Notes [facility] Name: Lawanda Morillo Age: 25 yrs Sex: Female : 2000 Arrival Date: 03/18/2025 Time: 23:02 Bed 5 Private MD: Diagnosis: Lower abdominal pain, unspecified;Pelvic and perineal pain Presentation: 03/18 23:22 Chief complaint: Patient states: PAIN TO BOTH SIDES, LOWER ABDOMEN AND HEAVY AMOUNTS OF dd2 CLEAR VAGINAL DISCHARGE X1 DAY. Coronavirus screen: At this time, the client does not indicate any symptoms associated with coronavirus-19. Ebola Screen: No symptoms or risks identified at this time. Initial Sepsis Screen: Does the patient meet any 2 criteria? No. Patient's initial sepsis screen is negative. Does the patient have a suspected source of infection? No. Patient's initial sepsis screen is negative. Risk Assessment: Do you want to hurt yourself or someone else? Patient reports no desire to harm self or others. Onset of symptoms was March 18, 2025. 23:22 Method Of Arrival: Ambulatory dd2 23:22 Acuity: NAIMA 3 dd2 Triage Assessment: 23:24 General: Appears in no apparent distress. uncomfortable, Behavior is calm, cooperative, dd2 appropriate for age. Pain: Complains of pain in suprapubic area, anterior aspect of right lateral abdomen and anterior aspect of left lateral abdomen. GI: Reports lower abdominal pain. 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 - Infectious Disease History:: Denies. - Social history:: Smoking status: Patient denies any tobacco usage or history of. Screenin/24 00:[address] [facility] ED Fall Risk Assessment (Adult) History of falling in the last 3 months, jj7 including since admission No falls in past 3 months (0 pts) Confusion or Disorientation No (0 pts) Intoxicated or Sedated No (0 pts) Impaired Gait No (0 pts) Mobility Assist Device Used No (0 pt) Altered Elimination No (0 pt) Score/Fall Risk Level 0 - 2 = Low Risk Oriented to surroundings, Maintained a safe environment, Educated pt \T\ family on fall prevention, incl call for assistance when getting out of bed, Assessed \T\ reinforced patient's understanding of fall precautions. Abuse screen: Denies threats or abuse. Nutritional screening: No deficits noted. Tuberculosis screening: No symptoms or risk factors identified. Assessment: 03/18 23:35 General: Appears in no apparent distress. comfortable. Pain: Complains of pain in jj7 posterior aspect of right lateral abdomen, anterior aspect of right lateral abdomen, posterior aspect of left lateral abdomen and anterior aspect of left lateral abdomen. GI: Abdomen is tender to palpation in right lower quadrant. GI: Abdomen is tender to palpation PELVIC PAIN. : CVA tenderness noted on right. : Vital Signs: 23:22 BP 118 / 70; Pulse 88; Resp 16; Temp 99.1; Pulse Ox 100% ; Weight 81.65 kg; Height 4 dd2 ft. 10 in. ; 03/19 00:30 BP 103 / 47; Pulse 81; Resp 17; Pulse Ox 100% ; jj7 01:30 BP 109 / 53; Pulse 78; Resp 17; Pulse Ox 99% ; jj7 02:26 BP 111 / 65; Pulse 77; Resp 17; Temp 98.1; Pulse Ox 99% ; jj7 03/18 23:22 Body Mass Index 37.62 (81.65 kg, 147.32 cm) dd2 ED Course: 03/18 23:04 Patient arrived in ED. mr 23:06 Mandy Zavala PA-C [facility]. sb4 23:06 Phil Carrasco MD is Attending Physician. sb4 23:24 Triage completed. dd2 23:24 Arm band placed on right wrist. dd2 23:30 Inserted saline lock: 20 gauge in left forearm, using aseptic technique. Flushed with jj7 10 mL NS. 03/19 00:29 Patient has correct armband on for positive identification. Bed in low position. Call jj7 light in reach. Side rails up X 1. Provided Education on: USE OF CALL KNIGHT. 00:49 CT Abd/Pelvis - IV Contrast Only In Process Unspecified. EDMS 02:26 No provider procedures requiring assistance completed. IV discontinued, intact, jj7 bleeding controlled, No redness/swelling at site. Pressure dressing applied. Administered Medications: 03/18 23:38 Drug: TORadol - Ketorolac IVP 15 mg IVP once Route: IVP; Site: left forearm; jj7 03/19 00:00 Follow up: Response: Marked relief of symptoms; Pain is decreased 03/18 23:38 Drug: Ondansetron IVP 4 mg IVP once; over 2 minutes Route: IVP; Site: left forearm; jj7 03/19 00:00 Follow up: Response: Marked relief of symptoms 03/18 23:38 Drug: NS 0.9% IV 1000 ml IV at 1 bolus Per protocol; to be given as a bolus over 60 jj7 minutes Route: IV; Rate: 1 bolus; Site: left forearm; 03/19 00:45 Follow up: IV Status: Completed infusion j7 Medication: 02:26 VIS not applicable for this client. jj7 Outcome: 02:03 Discharge ordered by MD. de guzman 02:26 Discharged to home ambulatory, j7 02:26 Condition: improved 02:26 Discharge instructions given to patient, Instructed on discharge instructions, medication usage, Demonstrated understanding of instructions, medications, Prescriptions given X 2, 02:29 Patient left the ED. jj7 Signatures: Dispatcher [employer] EDMS Sussy Gonzalez, Edmund Reg mr Jonathan Summers RN RN [email or web address] Mandy Zavala PA-C PA-C sb4 Potepalov, Sergey, MD MD sp4 BUSHRA MAHONEY RN RN dd2 Corrections: (The following items were deleted from the chart) 03/18 23:24 PSHx: None; dd2 dd2
--- NOTE | 2025-03-19 02:04 | EDPHYS ---
Physician Documentation [facility] Name: Lawanda Morillo Age: 25 yrs Sex: Female : 2000 Arrival Date: 03/18/2025 Time: 23:02 Bed 5 Private MD: ED Physician Phil Carrasco HPI: 03/18 23:36 This 25 yrs old Female presents to ER via Ambulatory with complaints of Abdominal Pain, sb4 Flank Pain. 23:36 patient reports intermittent sharp pains in her lower abdomen and sides all day today. sb4 states she feels the pain along her scar. additionally endorses clear vaginal discharge. denies any other associated symptoms. no nausea, vomiting, diarrhea, fever, chills, constipation, vag bleed. 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 - Infectious Disease History:: Denies. - Social history:: Smoking status: Patient denies any tobacco usage or history of. ROS: 23:36 Constitutional: Negative for fever, chills, and weight loss, sb4 23:36 Abdomen/GI: Positive for abdominal pain, 23:36 : Positive for vaginal discharge, 23:36 All other systems are negative, Exam: 23:36 Constitutional: This is a well developed, well nourished patient who is awake, alert, sb4 and in no acute distress. Head/Face: Normocephalic, atraumatic. Eyes: Extra-ocular motions intact. Periorbital areas with no swelling, redness, or edema. ENT: Mucous membranes moist. Cardiovascular: Regular rate and rhythm with a normal S1 and S2. Respiratory: No increased work of breathing, no retractions or nasal flaring. Skin: Warm, dry with normal turgor. Normal color with no rashes, no lesions, and no evidence of cellulitis. 23:36 Abdomen/GI: Inspection: abdomen appears normal, Bowel sounds: normal, Palpation: soft, mild abdominal tenderness, in the suprapubic area, Vital Signs: 23:22 BP 118 / 70; Pulse 88; Resp 16; Temp 99.1; Pulse Ox 100% ; Weight 81.65 kg; Height 4 dd2 ft. 10 in. ; 03/19 00:30 BP 103 / 47; Pulse 81; Resp 17; Pulse Ox 100% ; jj7 01:30 BP 109 / 53; Pulse 78; Resp 17; Pulse Ox 99% ; jj7 02:26 BP 111 / 65; Pulse 77; Resp 17; Temp 98.1; Pulse Ox 99% ; jj7 03/18 23:22 Body Mass Index 37.62 (81.65 kg, 147.32 cm) dd2 MDM: 03/18 23:10 Medical Screening Exam initiated sb4 23:36 Differential diagnosis: appendicitis, diverticulitis, Dysmenorrhea, Ectopic , sb4 Endometriosis, non-specific abd pain, urinary tract infection. 03/19 01:09 Data reviewed: vital signs, nurses notes, lab test result(s), radiologic studies, and sb4 as a result, I will discharge patient. Counseling: I had a detailed discussion with the patient and/or guardian regarding the historical points, exam findings, and any diagnostic results supporting the discharge/admit diagnosis, lab results, radiology results. 01:56 ED course: EXAM DESCRIPTION: CTABDOMEN PELVIS WITH IV CONTRAST 03/19/2025 1:41 AM CDT sp4 CLINICAL HISTORY: 25 years, Female, Abdomen pain. COMPARISON: None. PROCEDURE: Contrast-enhanced images of the abdomen and pelvis were performed from the lung bases to the ischial tuberosities after the administration of IV contrast. In addition multiplanar reformats in the coronal and sagittal plane were obtained and reviewed. An individualized dose optimization technique, Automated Exposure Control, was utilized for the performed procedure. FINDINGS: Lung bases: The lung bases demonstrate to be clear. Liver: The liver demonstrated presence of decreased attenuation corresponding to fatty infiltration. Gallbladder: The gallbladder demonstrate to be normal. Adrenal glands: The adrenal glands demonstrate to be normal. Pancreas: The pancreas demonstrate to be normal. Spleen: The spleen demonstrate to be within normal limits. Kidneys: The kidneys demonstrate normal uptake of contrast media. There is no evidence for nephrolithiasis and/or hydronephrosis. GI: Grossly the unopacified stomach and small bowel bowel demonstrate to be within normal limits. No evidence for bowel dilatation and/or free air. The appendix is normal. The left-sided colon demonstrate to be decompressed with no gross abnormalities. : The urinary bladder demonstrate to be suboptimal distention with no gross abnormalities. Genitalia: The uterus demonstrate to be within normal limits. There are normal adnexal structures. Abdominal aorta: The aorta demonstrate to be within normal limits. Retroperitoneum:There is no retroperitoneal lymphadenopathy. There is no evidence for ascites and/or abnormal fluid collections. Bones: The bony structures demonstrate to be within normal limits. No evidence for compression deformity and/or significant skeletal lesions. Soft tissues: The soft tissues demonstrate to be unremarkable. IMPRESSION: Normal appendix. Fatty infiltration of the liver. No acute intra-abdominal or pelvic pathology. . 02:02 Differential diagnosis: nephrolithiasis, pyelonephritis, UTI, diverticulitis, sp4 pancreatitis. Consideration of Admission/Observation Escalation of care including admission/observation considered. ED course: CT today reveals no acute intra-abdominal or pelvic pathology. Patient stable for discharge home with p.o. as needed Naprosyn and Bentyl.. 03/18 23:23 Order name: CBC with Diff; Complete Time: 00:20 4 03/18 23:23 Order name: CMP; Complete Time: 00:22 sb4 03/18 23:23 Order name: Lipase; Complete Time: 00:22 sb4 03/18 23:23 Order name: Test, Urine; Complete Time: 00:24 sb4 03/18 23:23 Order name: UA Rfx Suleman Cult if indicated; Complete Time: 00:27 4 03/18 23:23 Order name: CT Abd/Pelvis - IV Contrast Only; Complete Time: 17:30 4 03/18 23:23 Order name: IV Saline Lock; Complete Time: 23:39 4 03/18 23:23 Order name: Labs collected and sent; Complete Time: 00:29 sb4 Administered Medications: 03/18 23:38 Drug: TORadol - Ketorolac IVP 15 mg IVP once Route: IVP; Site: left forearm; 03/19 00:00 Follow up: Response: Marked relief of symptoms; Pain is decreased 03/18 23:38 Drug: Ondansetron IVP 4 mg IVP once; over 2 minutes Route: IVP; Site: left forearm; 03/19 00:00 Follow up: Response: Marked relief of symptoms 03/18 23:38 Drug: NS 0.9% IV 1000 ml IV at 1 bolus Per protocol; to be given as a bolus over 60 jj7 minutes Route: IV; Rate: 1 bolus; Site: left forearm; 03/19 00:45 Follow up: IV Status: Completed infusion jj7 Disposition: 02:02 Co-signature as Attending Physician, Phil Carrasco MD I agree with the assessment sp4 and plan of care. I reviewed the patient's care provided by Advanced Practice Provider \T\ agree w/ the diagnosis \T\ care plan. I personally saw the pt \T\ performed a substantive portion of the visit, incldng all aspects of the (History/Exam/Medical Decision Making). 17:30 Chart complete. sb4 Disposition Summary: 03/19/25 02:03 Discharge Ordered Notes: Location: Home sp4 Problem: new sp4 Symptoms: have improved sp4 Condition: Stable sp4 Diagnosis - Lower abdominal pain, unspecified sp4 - Pelvic and perineal pain sp4 Followup: sp4 - With: Private Physician - When: 7 - 10 days - Reason: Recheck today's complaints Discharge Instructions: - Discharge Summary Sheet sp4 - Pelvic Pain, Female, [id number] sp4 Forms: - Patient Portal Instructions sp4 Prescriptions: - naproxen 500 mg Oral tablet - take 1 tablet ORAL route 2 times per day PRN pain; 50 tablet; Refills: 0, sp4 Product Selection Permitted - dicyclomine 20 mg Oral tablet - take 1 tablet ORAL route 3 times per day PRN abdominal or pelvic cramps; 30 sp4 tablet; Refills: 0, Product Selection Permitted Signatures: Dispatcher [employer] Jonathan Flores RN RN jj7 Mandy Zavala PA-C PA-C sb4 Phil Carrasco MD MD sp4 BUSHRA MAHONEY RN RN dd2 Corrections: (The following items were deleted from the chart) 03/18 23:25 23:24 PSHx: None; dd2 dd2
--- NOTE | 2025-03-19 02:40 | RAD REPORT ---
EXAM DESCRIPTION: CT ABDOMEN PELVIS WITH IV CONTRAST 03/19/2025 1:41 AM CDT CLINICAL HISTORY: 25 years, Female, Abdomen pain. COMPARISON: None. PROCEDURE: Contrast-enhanced images of the abdomen and pelvis were performed from the lung bases to the ischial tuberosities after the administration of IV contrast. In addition multiplanar reformats in the coronal and sagittal plane were obtained and reviewed. An individualized dose optimization technique, Automated Exposure Control, was utilized for the perfo rmed procedure. FINDINGS: Lung bases: The lung bases demonstrate to be clear. Liver: The liver demonstrated presence of decreased attenuation corresponding to fatty infiltration. Gallbladder: The gallbladder demonstrate to be normal. Adrenal glands: The adrenal glands demonstrate to be normal. Pancreas: The pancreas demonstrate to be normal. Spleen: The spleen demonstrate to be within normal limits. Kidneys: The kidneys demonstrate normal uptake of contrast media. There is no evidence for nephroli thiasis and/or hydronephrosis. GI: Grossly the unopacified stomach and small bowel bowel demonstrate to be within normal limits. No evidence for bowel dilatation and/or free air. The appendix is normal. The left-sided colon demonstrate to be decompressed with no gross abnormalities. : The urinary bladder demonstrate to be suboptimal distention with no gross abnormalities. Genitalia: The uterus demonstrate to be within normal limits. There are normal adnexal structures. Abdominal aorta: The aorta demonstrate to be within normal limits. Retroperitoneum: There is no retroperitoneal lymphadenopathy. There is no evidence for ascites and/or abnormal fluid collections. Bones: The bony structures demonstrate to be within normal limits. No evidence for compression deform ity and/or significant skeletal lesions. Soft tissues: The soft tissues demonstrate to be unremarkable. IMPRESSION: Normal appendix. Fatty infiltration of the liver. No acute intra-abdominal or pelvic pathology. Electronically signed by: Yves Calabrese MD 03/19/2025 01:46 AM CDT Due to temporary technical issues with the PACS/[employer] reporting system, reports are being davis d by the in-house radiologist without review as a courtesy to ensure prompt reporting the interpreting radiologist is fully responsible for the content of the report. Transcribed Date/Time: 03/19/2025 2:39 AM
== END 2025-03-19 02:29 | disposition home or self-care (01) ==
LOC: ER 23:02
DX: R10.30 Lower abdominal pain, unspecified (principal); R10.2 Pelvic and perineal pain
CPT/HCPCS: 36415; 74177; 80053; 81001; 81025; 83690; 85025; 96361; 96374; 96375; 99284; J2405; J7030; Q9967